=== PATIENT | male | born 1995 | race Caucasian/White ===

== ENCOUNTER 2019-07-26 08:59 | Emergency (ER) | payer MEDICARE, MEDICAID ==
[~2019-07-26] VITALS: Ht 188 cm; Wt 59.1 kg
[2019-07-26 09:08] VITALS: BP 103/66
[2019-07-26] MEDS ORDERED: GABA-1216 PO (09:11)
[2019-07-26 11:06] LABS: BASOPHILS % (AUTO) 0.6 % (0.0-2.0); EOSINOPHILS % (AUTO) 0.7 % (1.0-6.0); HEMATOCRIT 37.8 % (41-53); HEMOGLOBIN 12.8 g/dL (13.5-17.5); LYMPHOCYTES # (AUTO) 2.3 K/uL (1.0-4.8); LYMPHOCYTES % (AUTO) 31.5 % (22.0-44.0); MEAN CORPUSCULAR HEMOGLOBIN 31.1 pg (26.0-34.0); MEAN CORPUSCULAR HGB CONC 33.8 G/dL (31.0-37.0); MEAN CORPUSCULAR VOLUME 92 fL (80-100); MONOCYTES # (AUTO) 0.8 K/uL (0.1-1.0); MONOCYTES % (AUTO) 11.3 % (2.0-9.0); NEUTROPHILS % (AUTO) 55.9 % (40.0-70.0); PLATELET COUNT (AUTO) 272 K/uL (150-450); RED BLOOD CELL COUNT(AUTO) 4.11 MIL/uL (4.50-5.90); RED CELL DISTRIBUTION WIDTH 13.8 % (11.5-14.5)
[2019-07-26 11:18] LABS: ANION GAP 9 mmol/L (8-16); CALCIUM, TOTAL 9.1 mg/dL (8.8-10.5); CARBON DIOXIDE 29 mmol/L (22-29); CHLORIDE 100 mmol/L (98-107); CREATININE 0.84 mg/dL (0.60-1.30); GLOMERULAR FILTR. RATE CALC > 60 mL/min (>60); GLUCOSE,RANDOM 71 mg/dL (70-110); POTASSIUM 4.1 mmol/L (3.5-5.1); SODIUM SERUM 138 mmol/L (136-145); UREA NITROGEN, BLOOD 17 mg/dL (7-18)
[2019-07-26 11:22] LABS: ALANINE AMINOTRANSFERASE 31 U/L (12-78); ALBUMIN 4.2 g/dL (3.4-5.0); ALKALINE PHOSPHATASE 62 U/L (46-116); ASPARTATE AMINOTRANSFERASE 26 U/L (15-37); BILIRUBIN,TOTAL 0.6 mg/dL (0.1-1.0); TOTAL PROTEIN, SERUM 7.2 g/dL (6.4-8.2)
[2019-07-26] MEDS ORDERED: ACETAMINOPHEN 500 MG TABLET PO ONE (11:30)
== END 2019-07-26 12:27 | disposition home or self-care (01) ==
LOC: EMS 09:00
DX: R51 Headache (principal); F19.10 Other psychoactive substance abuse, uncomplicated; F17.210 Nicotine dependence, cigarettes, uncomplicated; F41.9 Anxiety disorder, unspecified; F32.9 Major depressive disorder, single episode, unspecified; F14.90 Cocaine use, unspecified, uncomplicated; F11.90 Opioid use, unspecified, uncomplicated; F12.90 Cannabis use, unspecified, uncomplicated
CPT/HCPCS: 36415; 80053; 85025; 99283; 99406; G0480

== ENCOUNTER 2019-08-05 05:03 | Inpatient (IN) | payer MEDICARE, MEDICAID ==
[~2019-08-05] VITALS: Ht 185.4 cm; Wt 63.5 kg
[~2019-08-05 05:03] MED LIST: GABA-1216 PO
[2019-08-05 06:46] LABS: BASOPHILS % (AUTO) 0.7 % (0.0-2.0); EOSINOPHILS % (AUTO) 0.7 % (1.0-6.0); HEMATOCRIT 39.4 % (41-53); LYMPHOCYTES # (AUTO) 2.6 K/uL (1.0-4.8); LYMPHOCYTES % (AUTO) 26.5 % (22.0-44.0); MEAN CORPUSCULAR HEMOGLOBIN 30.4 pg (26.0-34.0); MEAN CORPUSCULAR HGB CONC 33.1 G/dL (31.0-37.0); MEAN CORPUSCULAR VOLUME 92 fL (80-100); MONOCYTES # (AUTO) 0.8 K/uL (0.1-1.0); MONOCYTES % (AUTO) 8.5 % (2.0-9.0); NEUTROPHILS # (AUTO) 6.2 K/uL (1.8-7.7); NEUTROPHILS % (AUTO) 63.6 % (40.0-70.0); PLATELET COUNT (AUTO) 274 K/uL (150-450); RED CELL DISTRIBUTION WIDTH 13.7 % (11.5-14.5)
[2019-08-05 06:58] LABS: ANION GAP 7 mmol/L (8-16); CALCIUM, TOTAL 8.9 mg/dL (8.8-10.5); CARBON DIOXIDE 31 mmol/L (22-29); CHLORIDE 102 mmol/L (98-107); GLOMERULAR FILTR. RATE CALC > 60 mL/min (>60); GLUCOSE,RANDOM 72 mg/dL (70-110); POTASSIUM 3.7 mmol/L (3.5-5.1); SODIUM SERUM 140 mmol/L (136-145); UREA NITROGEN, BLOOD 13 mg/dL (7-18)
[2019-08-05 07:00] LABS: AMPHET/METH SCREEN,URINE POSITIVE (NEGATIVE); BARBITURATE SCREEN, URINE NEGATIVE (NEGATIVE); BENZODIAZEPINES SCREEN,URINE NEGATIVE (NEGATIVE); CANNABINOID SCREEN,URINE POSITIVE (NEGATIVE); COCAINE SCREEN,URINE NEGATIVE (NEGATIVE); METHADONE SCREEN, URINE NEGATIVE (NEGATIVE); OPIATE SCREEN,URINE NEGATIVE (NEGATIVE)
[2019-08-05 07:01] LABS: ALANINE AMINOTRANSFERASE 35 U/L (12-78); ALBUMIN 4.2 g/dL (3.4-5.0); ALKALINE PHOSPHATASE 67 U/L (46-116); ASPARTATE AMINOTRANSFERASE 29 U/L (15-37); BILIRUBIN,TOTAL 0.2 mg/dL (0.1-1.0); TOTAL PROTEIN, SERUM 7.6 g/dL (6.4-8.2)
[2019-08-05 07:16] LABS: PHENCYCLIDINE SCREEN,URINE NEGATIVE (NEGATIVE)
[2019-08-05] MEDS ORDERED: ZOLPIDEM TARTRATE 10 MG TABLET PO PRN (08:30)
[2019-08-05] MEDS ORDERED: HALOPERIDOL 5 MG TABLET PO PRN (08:30)
[2019-08-05 12:10] VITALS: BP 141/81
[2019-08-05] MEDS ORDERED: LOPERAMIDE HCL 2 MG CAPSULE PO PRN (12:45)
[2019-08-05] MEDS ORDERED: GuaiFENesin/D-METHORPHAN [SUGAR-FREE] 200-20MG/10 ML SYRUP UDCUP PO PRN (12:45)
[2019-08-05] MEDS ORDERED: MAG HYDROX/AL HYDROX/SIMETH ES 30 ML SUSPENSION UDCUP PO PRN (12:45)
[2019-08-05] MEDS ORDERED: MAGNESIUM HYDROXIDE SUSPENSION 30 ML UDCUP PO PRN (12:45)
[2019-08-05] MEDS ORDERED: ONDANSETRON HCL 4 MG TABLET PO PRN (12:45)
[2019-08-05] MEDS ORDERED: PETROLATUM,WHITE 28 GM JELLY TP PRN (12:45)
[2019-08-05] MEDS ORDERED: ACETAMINOPHEN 325 MG TABLET PO PRN (12:45)
[2019-08-05] MEDS ORDERED: ALBUTEROL SULFATE HFA 90 MCG/PUFF 8 GM INHALER IH PRN (12:45)
[2019-08-05] MEDS ORDERED: CloNIDine HCL 0.1 MG TABLET PO PRN (12:45)
[2019-08-05] MEDS ORDERED: DOCUSATE SODIUM 100 MG CAPSULE PO PRN (12:45)
[2019-08-05] MEDS: LORazepam 2 MG TABLET PO PRN (13:30)
[2019-08-05] MEDS: NICOTINE 14 MG/24 HOUR PATCH TD PRN (17:38)
[2019-08-05 17:58] VITALS: BP 101/68
[2019-08-06 08:40] LABS: CHOL/HDL RATIO 1.5 (4.2-7.3)
[2019-08-06] MEDS: QUEtiapine FUMARATE 25 MG TABLET PO SCH (09:00)
[2019-08-06 09:01] VITALS: BP 121/66
[2019-08-06] MEDS: LORazepam 2 MG TABLET PO PRN (13:02)
[2019-08-06 16:15] VITALS: BP 106/69
[2019-08-06] MEDS: IBUPROFEN 400 MG TABLET PO PRN (16:15)
[2019-08-06] MEDS: NICOTINE 14 MG/24 HOUR PATCH TD PRN (16:17)
[2019-08-07 08:33] VITALS: BP 104/55
[2019-08-07] MEDS: QUEtiapine FUMARATE 25 MG TABLET PO SCH (08:56)
[2019-08-07 16:15] VITALS: BP 107/66
[2019-08-08 06:46] VITALS: BP 114/68
[2019-08-08 08:09] VITALS: BP 112/64
[2019-08-08] MEDS: MULTIVITAMINS WITH MINERALS, THERAPEUTIC TABLET PO SCH (09:21)
[2019-08-08] MEDS: QUEtiapine FUMARATE 25 MG TABLET PO SCH (09:21)
[2019-08-08] MEDS: NICOTINE 14 MG/24 HOUR PATCH TD PRN (09:26)
[2019-08-08 16:23] VITALS: BP 119/68
[2019-08-09 01:41] VITALS: BP 104/62
[2019-08-09 08:19] VITALS: BP 119/60
[2019-08-09] MEDS: QUEtiapine FUMARATE 25 MG TABLET PO SCH (08:34)
[2019-08-09] MEDS: MULTIVITAMINS WITH MINERALS, THERAPEUTIC TABLET PO SCH (08:34)
[2019-08-09] MEDS: LORazepam 2 MG TABLET PO PRN (09:12)
[2019-08-09] MEDS: NICOTINE 14 MG/24 HOUR PATCH TD PRN (10:35)
[2019-08-09] MEDS: IBUPROFEN 400 MG TABLET PO PRN (16:21)
[2019-08-09 16:22] VITALS: BP_SYST 117; BP_DIAS 1; BP_DIAS 71
[2019-08-10 06:32] VITALS: BP 102/75
[2019-08-10] MEDS: LORazepam 2 MG TABLET PO PRN (08:02)
[2019-08-10] MEDS: QUEtiapine FUMARATE 25 MG TABLET PO SCH ×2 (08:02→16:21)
[2019-08-10] MEDS: MULTIVITAMINS WITH MINERALS, THERAPEUTIC TABLET PO SCH (08:02)
[2019-08-10] MEDS: NICOTINE 21 MG/24 HOUR PATCH TD SCH (09:27)
[2019-08-10 10:42] VITALS: BP 124/63
[2019-08-10 14:38] VITALS: BP 117/71
[2019-08-10] MEDS: IBUPROFEN 400 MG TABLET PO PRN (14:38)
[2019-08-10 16:46] VITALS: BP 113/63
[2019-08-11 06:12] VITALS: BP 112/63
[2019-08-11] MEDS: LORazepam 2 MG TABLET PO PRN ×2 (06:52→14:30)
[2019-08-11] MEDS: IBUPROFEN 400 MG TABLET PO PRN (07:03)
[2019-08-11] MEDS: NICOTINE 21 MG/24 HOUR PATCH TD SCH (08:24)
[2019-08-11] MEDS: MULTIVITAMINS WITH MINERALS, THERAPEUTIC TABLET PO SCH (08:25)
[2019-08-11] MEDS: QUEtiapine FUMARATE 25 MG TABLET PO SCH ×2 (08:25→16:32)
[2019-08-11 08:26] VITALS: BP 115/64
[2019-08-11 16:05] VITALS: BP 129/61
[2019-08-12 06:11] VITALS: BP 124/68
[2019-08-12] MEDS: QUEtiapine FUMARATE 25 MG TABLET PO SCH ×2 (08:04→16:11)
[2019-08-12] MEDS: MULTIVITAMINS WITH MINERALS, THERAPEUTIC TABLET PO SCH (08:04)
[2019-08-12] MEDS: NICOTINE 21 MG/24 HOUR PATCH TD SCH (08:04)
[2019-08-12] MEDS: LORazepam 2 MG TABLET PO PRN ×2 (08:05→14:49)
[2019-08-12 08:37] VITALS: BP_SYST 98; BP_DIAS 56; BP_DIAS 67
[2019-08-12 16:07] VITALS: BP 94/65
[2019-08-12] MEDS: IBUPROFEN 400 MG TABLET PO PRN (16:38)
[2019-08-13 00:06] VITALS: BP 100/62
[2019-08-13 07:12] VITALS: BP 102/68
[2019-08-13] MEDS: IBUPROFEN 400 MG TABLET PO PRN (07:15)
[2019-08-13] MEDS: MULTIVITAMINS WITH MINERALS, THERAPEUTIC TABLET PO SCH (08:10)
[2019-08-13] MEDS: QUEtiapine FUMARATE 25 MG TABLET PO SCH (08:10)
[2019-08-13] MEDS: LORazepam 2 MG TABLET PO PRN (08:10)
[2019-08-13] MEDS: NICOTINE 21 MG/24 HOUR PATCH TD SCH (08:11)
[2019-08-13 08:16] VITALS: BP 117/69
[2019-08-13 08:18] VITALS: BP 117/69
[2019-08-13] MEDS ORDERED: QUET25TA PO (09:59)
== END 2019-08-13 13:45 | disposition home or self-care (01) | DRG 885 ==
LOC: EMS 05:04 → B2X 10:54
PROVIDERS: ADMIT Psychiatry & Neurology Psychiatry; ATTEND Psychiatry & Neurology Child & Adolescent Psychiatry
DX: F25.1 Schizoaffective disorder, depressive type (principal); F15.10 Other stimulant abuse, uncomplicated; F12.10 Cannabis abuse, uncomplicated; I10 Essential (primary) hypertension; D64.9 Anemia, unspecified; R00.0 Tachycardia, unspecified; J44.9 Chronic obstructive pulmonary disease, unspecified; E03.9 Hypothyroidism, unspecified; F10.10 Alcohol abuse, uncomplicated; Z87.891 Personal history of nicotine dependence
CPT/HCPCS: 93005; G0480

== ENCOUNTER 2019-09-07 07:26 | Emergency (ER) | payer MEDICARE, MEDICAID ==
[~2019-09-07] VITALS: Ht 170.2 cm; Wt 72.7 kg
[~2019-09-07 07:26] MED LIST changes: -GABA-1216 PO; +QUET50TA PO
[2019-09-07] MEDS ORDERED: OLAN7.5T2 PO (07:47)
[2019-09-07 08:07] LABS: BASOPHILS % (AUTO) 0.6 % (0.0-2.0); HEMATOCRIT 34.4 % (41-53); HEMOGLOBIN 11.3 g/dL (13.5-17.5); LYMPHOCYTES # (AUTO) 1.6 K/uL (1.0-4.8); LYMPHOCYTES % (AUTO) 22.7 % (22.0-44.0); MEAN CORPUSCULAR HEMOGLOBIN 30.5 pg (26.0-34.0); MEAN CORPUSCULAR HGB CONC 32.7 G/dL (31.0-37.0); MEAN CORPUSCULAR VOLUME 93 fL (80-100); MONOCYTES # (AUTO) 0.9 K/uL (0.1-1.0); MONOCYTES % (AUTO) 13.1 % (2.0-9.0); NEUTROPHILS # (AUTO) 4.4 K/uL (1.8-7.7); NEUTROPHILS % (AUTO) 62.6 % (40.0-70.0); PLATELET COUNT (AUTO) 255 K/uL (150-450); RED BLOOD CELL COUNT(AUTO) 3.69 MIL/uL (4.50-5.90); RED CELL DISTRIBUTION WIDTH 14.1 % (11.5-14.5)
[2019-09-07 08:30] LABS: PROTHROMBIN TIME 10.6 SEC (9.4-11.6)
[2019-09-07 08:38] LABS: ANION GAP 8 mmol/L (8-16); CALCIUM, TOTAL 8.8 mg/dL (8.8-10.5); CARBON DIOXIDE 29 mmol/L (22-29); CHLORIDE 108 mmol/L (98-107); CREATININE 0.79 mg/dL (0.60-1.30); GLOMERULAR FILTR. RATE CALC > 60 mL/min (>60); GLUCOSE,RANDOM 98 mg/dL (70-110); POTASSIUM 3.6 mmol/L (3.5-5.1); SODIUM SERUM 145 mmol/L (136-145); UREA NITROGEN, BLOOD 17 mg/dL (7-18)
[2019-09-07 08:52] LABS: B-TYPE NATRIURETIC PEPTIDE 6 pg/mL (0-100)
[2019-09-07] MEDS ORDERED: LORazepam 1 MG TABLET PO ONE (09:00)
[2019-09-07 09:02] LABS: ALANINE AMINOTRANSFERASE 71 U/L (12-78); ALBUMIN 3.7 g/dL (3.4-5.0); ALKALINE PHOSPHATASE 67 U/L (46-116); ASPARTATE AMINOTRANSFERASE 28 U/L (15-37); BILIRUBIN,TOTAL 0.3 mg/dL (0.1-1.0); CREATINE KINASE, TOTAL ONLY 310 U/L (39-308); TOTAL PROTEIN, SERUM 7.4 g/dL (6.4-8.2)
[2019-09-07 09:11] LABS: AMPHET/METH SCREEN,URINE POSITIVE (NEGATIVE); BARBITURATE SCREEN, URINE NEGATIVE (NEGATIVE); BENZODIAZEPINES SCREEN,URINE NEGATIVE (NEGATIVE); CANNABINOID SCREEN,URINE POSITIVE (NEGATIVE); COCAINE SCREEN,URINE NEGATIVE (NEGATIVE); METHADONE SCREEN, URINE NEGATIVE (NEGATIVE); OPIATE SCREEN,URINE NEGATIVE (NEGATIVE)
[2019-09-07 09:36] LABS: APPEARANCE,URINE CLEAR (CLEAR); BILIRUBIN,URINE NEGATIVE (NEGATIVE); GLUCOSE, URINE (UA) NEGATIVE (NEGATIVE); KETONES,URINE NEGATIVE (NEGATIVE); LEUKOCYTE ESTERASE ,URINE NEGATIVE (NEGATIVE); NITRATE,URINE NEGATIVE (NEGATIVE); OCCULT BLOOD,URINE NEGATIVE (NEGATIVE); PH,URINE 6.5 (5.0-8.0); PROTEIN,URINE NEGATIVE (NEGATIVE)
[2019-09-07 09:49] LABS: PHENCYCLIDINE SCREEN,URINE NEGATIVE (NEGATIVE)
[2019-09-07 09:59] VITALS: BP 127/83
== END 2019-09-07 10:22 | disposition home or self-care (01) ==
LOC: EMS 07:27
DX: F32.9 Major depressive disorder, single episode, unspecified (principal); R07.9 Chest pain, unspecified; F19.10 Other psychoactive substance abuse, uncomplicated; F41.9 Anxiety disorder, unspecified; F11.90 Opioid use, unspecified, uncomplicated; F12.90 Cannabis use, unspecified, uncomplicated; F17.210 Nicotine dependence, cigarettes, uncomplicated
CPT/HCPCS: 36415; 71045; 80053; 80307; 81003; 82550; 83880; 84484; 85025; 85610; 85730; 93005; 99285; G0480

== ENCOUNTER 2019-09-11 20:38 | Inpatient (IN) | payer MEDICARE, MEDICAID ==
[~2019-09-11] VITALS: Ht 188 cm; Wt 67.2 kg
[~2019-09-11 20:38] MED LIST changes: +OLAN7.5T2 PO
[2019-09-11] MEDS ORDERED: PROMETHAZINE HCL 25 MG TABLET PO PRN (20:45)
[2019-09-11] MEDS ORDERED: ZOLPIDEM TARTRATE 10 MG TABLET PO PRN (20:45)
[2019-09-11] MEDS ORDERED: MAG HYDROX/AL HYDROX/SIMETH ES 30 ML SUSPENSION UDCUP PO PRN (20:45)
[2019-09-11] MEDS ORDERED: PALIPERIDONE 1.5 MG ER TABLET PO PRN (20:45)
[2019-09-11] MEDS ORDERED: LOPERAMIDE HCL 2 MG CAPSULE PO PRN (20:45)
[2019-09-11] MEDS ORDERED: TUBERCULIN, PURIFIED PROTEIN DERIVATIVE 5 TU/0.1 ML SYRINGE ID ONE (20:45)
[2019-09-11] MEDS ORDERED: HydrOXYzine PAMOATE 50 MG CAPSULE PO PRN (20:45)
[2019-09-11] MEDS ORDERED: GuaiFENesin/D-METHORPHAN [SUGAR-FREE] 200-20MG/10 ML SYRUP UDCUP PO PRN (20:45)
[2019-09-11] MEDS ORDERED: MAGNESIUM HYDROXIDE SUSPENSION 30 ML UDCUP PO PRN (20:45)
[2019-09-11] MEDS ORDERED: PALIPERIDONE 3 MG ER TABLET PO SCH (21:00)
[2019-09-12 00:29] VITALS: BP 105/69
[2019-09-12] MEDS: LORazepam 2 MG TABLET PO PRN (00:49)
[2019-09-12 08:39] LABS: BASOPHILS % (AUTO) 0.8 % (0.0-2.0); EOSINOPHILS % (AUTO) 2.3 % (1.0-6.0); HEMATOCRIT 36.4 % (41-53); HEMOGLOBIN 12.2 g/dL (13.5-17.5); LYMPHOCYTES # (AUTO) 1.8 K/uL (1.0-4.8); LYMPHOCYTES % (AUTO) 29.6 % (22.0-44.0); MEAN CORPUSCULAR HGB CONC 33.4 G/dL (31.0-37.0); MEAN CORPUSCULAR VOLUME 93 fL (80-100); MONOCYTES # (AUTO) 0.7 K/uL (0.1-1.0); MONOCYTES % (AUTO) 11.8 % (2.0-9.0); NEUTROPHILS # (AUTO) 3.3 K/uL (1.8-7.7); NEUTROPHILS % (AUTO) 55.5 % (40.0-70.0); PLATELET COUNT (AUTO) 249 K/uL (150-450); RED BLOOD CELL COUNT(AUTO) 3.93 MIL/uL (4.50-5.90); RED CELL DISTRIBUTION WIDTH 14.7 % (11.5-14.5)
[2019-09-12 08:46] VITALS: BP 140/68
[2019-09-12] MEDS: THIAMINE 100 MG TABLET PO SCH ×2 (08:46→16:35)
[2019-09-12] MEDS: NALTREXONE HCL 50 MG TABLET PO SCH (08:46)
[2019-09-12] MEDS: FOLIC ACID 1 MG TABLET PO SCH (08:46)
[2019-09-12] MEDS: MULTIVITAMINS WITH MINERALS, THERAPEUTIC TABLET PO SCH (08:46)
[2019-09-12] MEDS ORDERED: PALIPERIDONE PALMITATE 234 MG/1.5 ML SYRINGE IM ONE (09:00)
[2019-09-12 09:12] LABS: ALANINE AMINOTRANSFERASE 44 U/L (12-78); ALBUMIN 3.4 g/dL (3.4-5.0); ALKALINE PHOSPHATASE 73 U/L (46-116); ANION GAP 6 mmol/L (8-16); ASPARTATE AMINOTRANSFERASE 36 U/L (15-37); BILIRUBIN,TOTAL 0.4 mg/dL (0.1-1.0); CALCIUM, TOTAL 8.7 mg/dL (8.8-10.5); CARBON DIOXIDE 28 mmol/L (22-29); CHLORIDE 104 mmol/L (98-107); CHOL/HDL RATIO 1.8 (4.2-7.3); CHOLESTEROL 137 mg/dL (131-200); CREATININE 0.83 mg/dL (0.60-1.30); GLOMERULAR FILTR. RATE CALC > 60 mL/min (>60); GLUCOSE,RANDOM 74 mg/dL (70-110); HDL CHOLESTEROL 78 mg/dL (40-60); LDL CHOL (CALC.) 55 mg/dL (0-130); POTASSIUM 4.1 mmol/L (3.5-5.1); SODIUM SERUM 138 mmol/L (136-145); THYROID STIMULATING HORMONE 1.56 uIU/mL (0.36-3.74); TRIGLYCERIDES 19 mg/dL (15-150); UREA NITROGEN, BLOOD 19 mg/dL (7-18)
[2019-09-12 09:36] LABS: HEMOGLOBIN A1C 4.9 % (3.8-5.6)
[2019-09-12 16:15] VITALS: BP 113/74
[2019-09-12] MEDS: ACETAMINOPHEN 325 MG TABLET PO PRN (17:00)
[2019-09-13 01:22] VITALS: BP 105/63
[2019-09-13 08:33] VITALS: BP 130/60
[2019-09-13] MEDS: NALTREXONE HCL 50 MG TABLET PO SCH (09:08)
[2019-09-13] MEDS: THIAMINE 100 MG TABLET PO SCH ×2 (09:08→16:57)
[2019-09-13] MEDS: FOLIC ACID 1 MG TABLET PO SCH (09:08)
[2019-09-13] MEDS: MULTIVITAMINS WITH MINERALS, THERAPEUTIC TABLET PO SCH (09:08)
[2019-09-13] MEDS: LORazepam 2 MG TABLET PO PRN (09:08)
[2019-09-13 16:45] VITALS: BP 114/64
[2019-09-13] MEDS: DIVALPROEX SODIUM 500 MG ER TABLET PO SCH (20:34)
[2019-09-14 01:24] VITALS: BP 104/68
[2019-09-14 08:28] VITALS: BP 115/61
[2019-09-14] MEDS: MULTIVITAMINS WITH MINERALS, THERAPEUTIC TABLET PO SCH (09:12)
[2019-09-14] MEDS: NALTREXONE HCL 50 MG TABLET PO SCH (09:12)
[2019-09-14] MEDS: THIAMINE 100 MG TABLET PO SCH ×2 (09:12→16:31)
[2019-09-14] MEDS: FOLIC ACID 1 MG TABLET PO SCH (09:12)
[2019-09-14 11:18] VITALS: BP 120/61
[2019-09-14] MEDS: ACETAMINOPHEN 325 MG TABLET PO PRN ×2 (11:18→17:44)
[2019-09-14 16:29] VITALS: BP 106/64
[2019-09-14] MEDS: LORazepam 2 MG TABLET PO PRN (17:45)
[2019-09-14] MEDS: DIVALPROEX SODIUM 500 MG ER TABLET PO SCH (20:41)
[2019-09-15 02:52] VITALS: BP 115/60
[2019-09-15] MEDS: FOLIC ACID 1 MG TABLET PO SCH (09:01)
[2019-09-15] MEDS: NALTREXONE HCL 50 MG TABLET PO SCH (09:01)
[2019-09-15] MEDS: MULTIVITAMINS WITH MINERALS, THERAPEUTIC TABLET PO SCH (09:01)
[2019-09-15] MEDS: THIAMINE 100 MG TABLET PO SCH ×2 (09:02→16:09)
[2019-09-15 09:04] VITALS: BP 103/60
[2019-09-15] MEDS: LORazepam 2 MG TABLET PO PRN (09:55)
[2019-09-15 09:56] LABS: ALANINE AMINOTRANSFERASE 33 U/L (12-78); ALBUMIN 3.6 g/dL (3.4-5.0); ALKALINE PHOSPHATASE 70 U/L (46-116); ANION GAP 5 mmol/L (8-16); ASPARTATE AMINOTRANSFERASE 19 U/L (15-37); BILIRUBIN,TOTAL 0.1 mg/dL (0.1-1.0); CALCIUM, TOTAL 9.2 mg/dL (8.8-10.5); CARBON DIOXIDE 33 mmol/L (22-29); CHLORIDE 105 mmol/L (98-107); CREATINE KINASE, TOTAL ONLY 154 U/L (39-308); CREATININE 0.93 mg/dL (0.60-1.30); GLOMERULAR FILTR. RATE CALC > 60 mL/min (>60); GLUCOSE,RANDOM 85 mg/dL (70-110); POTASSIUM 4.2 mmol/L (3.5-5.1); SODIUM SERUM 143 mmol/L (136-145); TOTAL PROTEIN, SERUM 7.5 g/dL (6.4-8.2); UREA NITROGEN, BLOOD 21 mg/dL (7-18); VALPROIC ACID 67 mcg/mL (50-100)
[2019-09-15] MEDS: ACETAMINOPHEN 325 MG TABLET PO PRN (09:56)
[2019-09-15] MEDS ORDERED: DIVA-80 PO (14:43)
[2019-09-15] MEDS ORDERED: PALI117D IM (14:43)
[2019-09-15] MEDS ORDERED: NALT50TA PO (14:43)
[2019-09-15 16:21] VITALS: BP 126/60
[2019-09-16] MEDS ORDERED: MAGNESIUM OXIDE 400 MG TABLET PO SCH (09:00)
[2019-09-16] MEDS ORDERED: PALIPERIDONE PALMITATE 156 MG/ML SYRINGE IM ONE (09:00)
== END 2019-09-15 20:56 | disposition home or self-care (01) | DRG 885 ==
LOC: B2X 22:14
PROVIDERS: ADMIT Psychiatry & Neurology Psychiatry; ATTEND Psychiatry & Neurology Psychiatry
DX: F25.9 Schizoaffective disorder, unspecified (principal); R45.851 Suicidal ideations; D64.9 Anemia, unspecified; R79.89 Other specified abnormal findings of blood chemistry; F19.10 Other psychoactive substance abuse, uncomplicated; F15.90 Other stimulant use, unspecified, uncomplicated; Z91.19 Patient's noncompliance with other medical treatment and regimen; F32.9 Major depressive disorder, single episode, unspecified; F12.90 Cannabis use, unspecified, uncomplicated; Z79.899 Other long term (current) drug therapy; Z91.5 Personal history of self-harm
CPT/HCPCS: 80074; 83036; 83735; 84439; 84443; 86592; 87081

== ENCOUNTER 2020-01-24 03:07 | Inpatient (IN) | payer MEDICARE, MEDICAID ==
[~2020-01-24] VITALS: Ht 185.4 cm; Wt 80.3 kg
[~2020-01-24 03:07] MED LIST changes: +DIVA-80 PO; +NALT50TA PO; -OLAN7.5T2 PO; +PALI117D IM; -QUET50TA PO
[2020-01-24] MEDS ORDERED: ZOLPIDEM TARTRATE 10 MG TABLET PO PRN (04:45)
[2020-01-24 05:01] VITALS: BP 102/65
[2020-01-24 05:21] VITALS: BP 102/65
[2020-01-24 06:04] VITALS: BP 105/64
[2020-01-24 08:14] VITALS: BP 100/60
[2020-01-24] MEDS: RisperiDONE 2 MG TABLET PO SCH ×2 (09:00→21:00)
[2020-01-24] MEDS ORDERED: GuaiFENesin/D-METHORPHAN [SUGAR-FREE] 200-20MG/10 ML SYRUP UDCUP PO PRN (15:15)
[2020-01-24] MEDS ORDERED: DOCUSATE SODIUM 100 MG CAPSULE PO PRN (15:15)
[2020-01-24] MEDS ORDERED: ACETAMINOPHEN 325 MG TABLET PO PRN (15:15)
[2020-01-24] MEDS ORDERED: MAG HYDROX/AL HYDROX/SIMETH ES 30 ML SUSPENSION UDCUP PO PRN (15:15)
[2020-01-24] MEDS ORDERED: LOPERAMIDE HCL 2 MG CAPSULE PO PRN (15:15)
[2020-01-24] MEDS ORDERED: ONDANSETRON HCL 4 MG TABLET PO PRN (15:15)
[2020-01-24] MEDS ORDERED: MAGNESIUM HYDROXIDE SUSPENSION 30 ML UDCUP PO PRN (15:15)
[2020-01-24] MEDS ORDERED: PETROLATUM,WHITE 28 GM JELLY TP PRN (15:15)
[2020-01-24] MEDS ORDERED: ALBUTEROL SULFATE HFA 90 MCG/PUFF 8 GM INHALER IH PRN (15:15)
[2020-01-24] MEDS ORDERED: CloNIDine HCL 0.1 MG TABLET PO PRN (15:15)
[2020-01-24] MEDS: DIVALPROEX SODIUM 500 MG ER TABLET PO SCH (21:00)
[2020-01-25 08:48] VITALS: BP 103/48
[2020-01-25] MEDS: RisperiDONE 2 MG TABLET PO SCH ×3 (09:00→20:31)
[2020-01-25 16:08] VITALS: BP 95/60
[2020-01-25] MEDS: DIVALPROEX SODIUM 500 MG ER TABLET PO SCH (20:31)
[2020-01-26 08:20] VITALS: BP 108/83
[2020-01-26] MEDS: IBUPROFEN 400 MG TABLET PO PRN (08:49)
[2020-01-26] MEDS: RisperiDONE 2 MG TABLET PO SCH ×2 (08:49→21:00)
[2020-01-26] MEDS: CEPHALEXIN MONOHYDRATE 500 MG CAPSULE PO SCH ×2 (12:53→18:00)
[2020-01-26] MEDS: LORazepam 2 MG TABLET PO PRN (12:53)
[2020-01-26 16:21] VITALS: BP 113/67
[2020-01-26] MEDS: DIVALPROEX SODIUM 500 MG ER TABLET PO SCH (21:00)
[2020-01-27 06:03] VITALS: BP 110/70
[2020-01-27 08:15] LABS: APPEARANCE,URINE CLEAR (CLEAR); BILIRUBIN,URINE NEGATIVE (NEGATIVE); GLUCOSE, URINE (UA) NEGATIVE (NEGATIVE); KETONES,URINE NEGATIVE (NEGATIVE); LEUKOCYTE ESTERASE ,URINE NEGATIVE (NEGATIVE); NITRATE,URINE NEGATIVE (NEGATIVE); OCCULT BLOOD,URINE NEGATIVE (NEGATIVE); PH,URINE 6.5 (5.0-8.0); PROTEIN,URINE NEGATIVE (NEGATIVE); UROBILINOGEN,URINE 0.2 mg/dL (<=1.0)
[2020-01-27 08:16] LABS: BACTERIA,URINE None Seen /HPF (None Seen); RBC,URINE None Seen /HPF (0-2); WBC,URINE None Seen /HPF (0-5)
[2020-01-27 08:35] VITALS: BP 130/52
[2020-01-27] MEDS: RisperiDONE 2 MG TABLET PO SCH ×2 (10:04→20:36)
[2020-01-27] MEDS: CEPHALEXIN MONOHYDRATE 500 MG CAPSULE PO SCH ×3 (10:04→17:03)
[2020-01-27] MEDS: LORazepam 2 MG TABLET PO PRN (13:45)
[2020-01-27 16:05] VITALS: BP 130/50
[2020-01-27] MEDS: DIVALPROEX SODIUM 500 MG ER TABLET PO SCH (20:36)
[2020-01-28 08:07] VITALS: BP 124/83
[2020-01-28] MEDS: CEPHALEXIN MONOHYDRATE 500 MG CAPSULE PO SCH ×3 (08:26→16:38)
[2020-01-28] MEDS: RisperiDONE 2 MG TABLET PO SCH ×2 (08:26→20:28)
[2020-01-28] MEDS: IBUPROFEN 400 MG TABLET PO PRN (09:26)
[2020-01-28] MEDS: LORazepam 2 MG TABLET PO PRN (15:37)
[2020-01-28 16:02] VITALS: BP 125/63
[2020-01-28] MEDS: DIVALPROEX SODIUM 500 MG ER TABLET PO SCH (20:28)
[2020-01-29 00:51] VITALS: BP 109/72
[2020-01-29 08:21] VITALS: BP 106/54
[2020-01-29] MEDS: CEPHALEXIN MONOHYDRATE 500 MG CAPSULE PO SCH ×3 (08:25→16:49)
[2020-01-29] MEDS: LORazepam 2 MG TABLET PO PRN ×3 (08:25→17:28)
[2020-01-29] MEDS: RisperiDONE 2 MG TABLET PO SCH ×2 (08:25→21:49)
[2020-01-29] MEDS ORDERED: PALIPERIDONE PALMITATE 234 MG/1.5 ML SYRINGE IM ONE (11:00)
[2020-01-29 16:20] VITALS: BP 112/60
[2020-01-29] MEDS: QUEtiapine FUMARATE 100 MG TABLET PO PRN (16:47)
[2020-01-29 19:02] LABS: COVID AG,FIA SOURCE NASOPHARYNGEAL
[2020-01-29] MEDS: DIVALPROEX SODIUM 500 MG ER TABLET PO SCH (21:49)
[2020-01-30 00:23] VITALS: BP 114/60
[2020-01-30 08:05] VITALS: BP 109/66
[2020-01-30] MEDS: LORazepam 2 MG TABLET PO PRN (09:20)
[2020-01-30] MEDS: RisperiDONE 2 MG TABLET PO SCH ×2 (09:21→20:29)
[2020-01-30] MEDS: CEPHALEXIN MONOHYDRATE 500 MG CAPSULE PO SCH ×3 (09:21→16:32)
[2020-01-30 14:33] VITALS: BP 109/60
[2020-01-30 16:00] VITALS: BP 100/72
[2020-01-30] MEDS: NICOTINE 14 MG/24 HOUR PATCH TD PRN (16:40)
[2020-01-30] MEDS: DIVALPROEX SODIUM 500 MG ER TABLET PO SCH (20:29)
[2020-01-31 03:07] VITALS: BP 122/61
[2020-01-31 08:14] VITALS: BP 121/68
[2020-01-31] MEDS: CEPHALEXIN MONOHYDRATE 500 MG CAPSULE PO SCH (09:22)
[2020-01-31] MEDS: RisperiDONE 2 MG TABLET PO SCH ×2 (09:22→21:00)
[2020-01-31] MEDS: LORazepam 2 MG TABLET PO PRN ×2 (09:22→15:27)
[2020-01-31] MEDS: NICOTINE 14 MG/24 HOUR PATCH TD PRN (09:35)
[2020-01-31] MEDS: IBUPROFEN 400 MG TABLET PO PRN (12:06)
[2020-01-31 16:32] VITALS: BP 109/62
[2020-01-31] MEDS: DIVALPROEX SODIUM 500 MG ER TABLET PO SCH (21:00)
[2020-02-01 05:36] VITALS: BP 136/92
[2020-02-01] MEDS: LORazepam 2 MG TABLET PO PRN ×3 (05:59→16:27)
[2020-02-01] MEDS: QUEtiapine FUMARATE 100 MG TABLET PO PRN ×3 (06:10→16:27)
[2020-02-01 08:06] VITALS: BP 109/77
[2020-02-01] MEDS: RisperiDONE 2 MG TABLET PO SCH ×2 (09:13→20:29)
[2020-02-01] MEDS: NICOTINE 14 MG/24 HOUR PATCH TD PRN (10:38)
[2020-02-01 16:13] VITALS: BP 108/68
[2020-02-01] MEDS: DIVALPROEX SODIUM 500 MG ER TABLET PO SCH (20:29)
[2020-02-02 04:06] VITALS: BP 114/74
[2020-02-02] MEDS: LORazepam 2 MG TABLET PO PRN (06:39)
[2020-02-02 07:43] LABS: BASOPHILS % (AUTO) 0.6 % (0.0-2.0); EOSINOPHILS % (AUTO) 1.7 % (1.0-6.0); HEMATOCRIT 40.4 % (41-53); HEMOGLOBIN 13.7 g/dL (13.5-17.5); LYMPHOCYTES # (AUTO) 2.9 K/uL (1.0-4.8); LYMPHOCYTES % (AUTO) 47.2 % (22.0-44.0); MEAN CORPUSCULAR HEMOGLOBIN 30.2 pg (26.0-34.0); MEAN CORPUSCULAR VOLUME 89 fL (80-100); MONOCYTES # (AUTO) 0.6 K/uL (0.1-1.0); MONOCYTES % (AUTO) 10.3 % (2.0-9.0); NEUTROPHILS # (AUTO) 2.5 K/uL (1.8-7.7); NEUTROPHILS % (AUTO) 40.2 % (40.0-70.0); PLATELET COUNT (AUTO) 246 K/uL (150-450); RED BLOOD CELL COUNT(AUTO) 4.55 MIL/uL (4.50-5.90); RED CELL DISTRIBUTION WIDTH 14.6 % (11.5-14.5)
[2020-02-02 08:11] VITALS: BP 129/80
[2020-02-02 08:13] LABS: ALANINE AMINOTRANSFERASE 23 U/L (12-78); ALBUMIN 3.5 g/dL (3.4-5.0); ALKALINE PHOSPHATASE 63 U/L (46-116); ANION GAP 6 mmol/L (8-16); ASPARTATE AMINOTRANSFERASE 17 U/L (15-37); BILIRUBIN,TOTAL 0.2 mg/dL (0.1-1.0); CARBON DIOXIDE 30 mmol/L (22-29); CHLORIDE 105 mmol/L (98-107); CHOL/HDL RATIO 2.4 (4.2-7.3); CHOLESTEROL 163 mg/dL (131-200); CREATININE 0.77 mg/dL (0.60-1.30); FREE T4 (FREE THYROXINE) 0.84 ng/dL (0.76-1.46); GLOMERULAR FILTR. RATE CALC > 60 mL/min (>60); GLUCOSE,RANDOM 86 mg/dL (70-110); HDL CHOLESTEROL 67 mg/dL (40-60); LDL CHOL (CALC.) 91 mg/dL (0-130); POTASSIUM 4.3 mmol/L (3.5-5.1); SODIUM SERUM 141 mmol/L (136-145); THYROID STIMULATING HORMONE 3.02 uIU/mL (0.36-3.74); TOTAL PROTEIN, SERUM 7.2 g/dL (6.4-8.2); TRIGLYCERIDES 27 mg/dL (15-150); UREA NITROGEN, BLOOD 12 mg/dL (7-18); VALPROIC ACID 63 mcg/mL (50-100)
[2020-02-02 08:17] LABS: HEMOGLOBIN A1C 5.1 % (3.8-5.6)
[2020-02-02] MEDS: RisperiDONE 2 MG TABLET PO SCH (08:34)
[2020-02-02] MEDS ORDERED: PALIPERIDONE PALMITATE 156 MG/ML SYRINGE IM ONE (09:00)
[2020-02-02] MEDS ORDERED: DIVA-80 PO (09:01)
[2020-02-02] MEDS ORDERED: PALI234D IM (09:01)
[2020-02-02] MEDS ORDERED: RISP2TAB76 PO (09:01)
== END 2020-02-02 12:40 | disposition home or self-care (01) | DRG 885 ==
LOC: B2X 04:30
DX: F31.4 Bipolar disorder, current episode depressed, severe, without psychotic features (principal); R45.851 Suicidal ideations; F25.9 Schizoaffective disorder, unspecified; D64.9 Anemia, unspecified; F15.10 Other stimulant abuse, uncomplicated; F41.9 Anxiety disorder, unspecified; R10.13 Epigastric pain; F99 Mental disorder, not otherwise specified; Z20.828 Contact with and (suspected) exposure to other viral communicable diseases; Z91.14 Patient's other noncompliance with medication regimen; Z91.5 Personal history of self-harm; Z79.899 Other long term (current) drug therapy
CPT/HCPCS: 83036; 84439; 84443; 87426

== ENCOUNTER 2020-11-23 02:41 | Inpatient (IN) | payer MEDICARE, MEDICAID ==
[~2020-11-23] VITALS: Ht 167.6 cm; Wt 69.5 kg
[~2020-11-23 02:41] MED LIST changes: -NALT50TA PO; -PALI117D IM; +PALI234D IM; +RISP2TAB76 PO
[2020-11-23 03:03] LABS: BASOPHILS % (AUTO) 0.2 % (0.0-2.0); EOSINOPHILS % (AUTO) 0.9 % (1.0-6.0); HEMATOCRIT 37.4 % (41-53); HEMOGLOBIN 12.3 g/dL (13.5-17.5); LYMPHOCYTES # (AUTO) 2.1 K/uL (1.0-4.8); LYMPHOCYTES % (AUTO) 17.1 % (22.0-44.0); MEAN CORPUSCULAR HEMOGLOBIN 29.2 pg (26.0-34.0); MEAN CORPUSCULAR HGB CONC 32.9 G/dL (31.0-37.0); MEAN CORPUSCULAR VOLUME 89 fL (80-100); MONOCYTES # (AUTO) 0.9 K/uL (0.1-1.0); MONOCYTES % (AUTO) 6.9 % (2.0-9.0); NEUTROPHILS # (AUTO) 9.3 K/uL (1.8-7.7); NEUTROPHILS % (AUTO) 74.9 % (40.0-70.0); PLATELET COUNT (AUTO) 265 K/uL (150-450); RED BLOOD CELL COUNT(AUTO) 4.23 MIL/uL (4.50-5.90); RED CELL DISTRIBUTION WIDTH 14.1 % (11.5-14.5)
[2020-11-23 03:10] LABS: ANION GAP 6 mmol/L (8-16); CALCIUM, TOTAL 8.8 mg/dL (8.8-10.5); CARBON DIOXIDE 30 mmol/L (22-29); CHLORIDE 103 mmol/L (98-107); CREATININE 0.82 mg/dL (0.60-1.30); GLOMERULAR FILTR. RATE CALC > 60 mL/min (>60); GLUCOSE,RANDOM 92 mg/dL (70-110); POTASSIUM 4.2 mmol/L (3.5-5.1); SODIUM SERUM 139 mmol/L (136-145); UREA NITROGEN, BLOOD 14 mg/dL (7-18)
[2020-11-23 03:18] LABS: ALANINE AMINOTRANSFERASE 34 U/L (12-78); ALBUMIN 3.9 g/dL (3.4-5.0); ALKALINE PHOSPHATASE 84 U/L (46-116); ASPARTATE AMINOTRANSFERASE 20 U/L (15-37); BILIRUBIN,TOTAL 0.4 mg/dL (0.1-1.0); VALPROIC ACID < 3 mcg/mL (50-100)
[2020-11-23 03:49] LABS: COVID AG,FIA SOURCE NASOPHARYNGEAL
[2020-11-23] MEDS ORDERED: ZOLPIDEM TARTRATE 10 MG TABLET PO PRN (04:45)
[2020-11-23] MEDS ORDERED: ONDANSETRON HCL 4 MG TABLET PO PRN (08:15)
[2020-11-23] MEDS ORDERED: PETROLATUM,WHITE 28 GM JELLY TP PRN (08:15)
[2020-11-23] MEDS ORDERED: ACETAMINOPHEN 325 MG TABLET PO PRN (08:15)
[2020-11-23] MEDS ORDERED: CloNIDine HCL 0.1 MG TABLET PO PRN (08:15)
[2020-11-23] MEDS ORDERED: ALBUTEROL SULFATE HFA 90 MCG/PUFF 8 GM INHALER IH PRN (08:15)
[2020-11-23] MEDS ORDERED: BACITRACIN 28 GM OINTMENT TP PRN (08:15)
[2020-11-23] MEDS ORDERED: MAG HYDROX/AL HYDROX/SIMETH ES 30 ML SUSPENSION UDCUP PO PRN (08:15)
[2020-11-23] MEDS ORDERED: MAGNESIUM HYDROXIDE SUSPENSION 30 ML UDCUP PO PRN (08:15)
[2020-11-23] MEDS ORDERED: OMEPRAZOLE 20 MG CAPSULE PO PRN (08:15)
[2020-11-23] MEDS ORDERED: DOCUSATE SODIUM 100 MG CAPSULE PO PRN (08:15)
[2020-11-23] MEDS ORDERED: LOPERAMIDE HCL 2 MG CAPSULE PO PRN (08:15)
[2020-11-23] MEDS ORDERED: BENZOCAINE/MENTHOL LOZENGE PO PRN (08:15)
[2020-11-23 08:45] VITALS: BP 116/77
[2020-11-23 09:25] VITALS: BP 116/77
[2020-11-23] MEDS: RisperiDONE 2 MG TABLET PO SCH ×2 (20:26→22:48)
[2020-11-24 06:59] LABS: BASOPHILS % (AUTO) 0.5 % (0.0-2.0); EOSINOPHILS % (AUTO) 1.9 % (1.0-6.0); HEMATOCRIT 38.1 % (41-53); HEMOGLOBIN 12.6 g/dL (13.5-17.5); LYMPHOCYTES # (AUTO) 2.3 K/uL (1.0-4.8); LYMPHOCYTES % (AUTO) 35.3 % (22.0-44.0); MEAN CORPUSCULAR HEMOGLOBIN 29.5 pg (26.0-34.0); MEAN CORPUSCULAR HGB CONC 33.2 G/dL (31.0-37.0); MEAN CORPUSCULAR VOLUME 89 fL (80-100); MONOCYTES # (AUTO) 0.8 K/uL (0.1-1.0); MONOCYTES % (AUTO) 11.8 % (2.0-9.0); NEUTROPHILS # (AUTO) 3.2 K/uL (1.8-7.7); NEUTROPHILS % (AUTO) 50.5 % (40.0-70.0); PLATELET COUNT (AUTO) 244 K/uL (150-450); RED BLOOD CELL COUNT(AUTO) 4.28 MIL/uL (4.50-5.90); RED CELL DISTRIBUTION WIDTH 14.6 % (11.5-14.5)
[2020-11-24 07:14] LABS: ALANINE AMINOTRANSFERASE 23 U/L (12-78); ALKALINE PHOSPHATASE 66 U/L (46-116); ANION GAP 5 mmol/L (8-16); ASPARTATE AMINOTRANSFERASE 15 U/L (15-37); BILIRUBIN,TOTAL 0.1 mg/dL (0.1-1.0); CALCIUM, TOTAL 8.2 mg/dL (8.8-10.5); CARBON DIOXIDE 27 mmol/L (22-29); CHLORIDE 107 mmol/L (98-107); CHOL/HDL RATIO 1.7 (4.2-7.3); CHOLESTEROL 104 mg/dL (131-200); GLOMERULAR FILTR. RATE CALC > 60 mL/min (>60); GLUCOSE,RANDOM 86 mg/dL (70-110); HDL CHOLESTEROL 61 mg/dL (40-60); LDL CHOL (CALC.) 39 mg/dL (0-130); PHOSPHORUS 3.2 mg/dL (2.5-4.9); POTASSIUM 4.2 mmol/L (3.5-5.1); SODIUM SERUM 139 mmol/L (136-145); TOTAL PROTEIN, SERUM 6.7 g/dL (6.4-8.2); TRIGLYCERIDES 20 mg/dL (15-150); UREA NITROGEN, BLOOD 12 mg/dL (7-18)
[2020-11-24 09:48] VITALS: BP 99/61
[2020-11-24] MEDS: RisperiDONE 2 MG TABLET PO SCH ×2 (10:13→20:55)
[2020-11-24] MEDS: DIVALPROEX SODIUM 500 MG ER TABLET PO SCH ×2 (10:13→17:00)
[2020-11-24 17:48] VITALS: BP 99/69
[2020-11-25] MEDS: DIVALPROEX SODIUM 500 MG ER TABLET PO SCH ×2 (09:17→16:40)
[2020-11-25] MEDS: RisperiDONE 2 MG TABLET PO SCH ×2 (09:17→20:38)
[2020-11-25 16:00] VITALS: BP 110/69
[2020-11-26] MEDS: RisperiDONE 2 MG TABLET PO SCH ×2 (08:09→20:55)
[2020-11-26] MEDS: DIVALPROEX SODIUM 500 MG ER TABLET PO SCH ×2 (08:09→17:13)
[2020-11-26 08:45] VITALS: BP 100/60
[2020-11-26 16:07] VITALS: BP 122/68
[2020-11-26] MEDS: HALOPERIDOL 5 MG TABLET PO PRN (17:13)
[2020-11-27 08:15] VITALS: BP 155/95
[2020-11-27] MEDS: DIVALPROEX SODIUM 500 MG ER TABLET PO SCH ×2 (08:21→16:29)
[2020-11-27] MEDS: RisperiDONE 2 MG TABLET PO SCH ×2 (08:21→20:26)
[2020-11-27 16:49] VITALS: BP 116/69
[2020-11-28 08:53] VITALS: BP 115/62
[2020-11-28] MEDS: DIVALPROEX SODIUM 500 MG ER TABLET PO SCH ×2 (09:00→16:13)
[2020-11-28] MEDS: RisperiDONE 2 MG TABLET PO SCH ×2 (09:00→20:33)
[2020-11-28 16:13] VITALS: BP 129/96
[2020-11-28] MEDS: LORazepam 2 MG TABLET PO PRN (16:13)
[2020-11-28 16:41] VITALS: BP 129/96
[2020-11-29 08:43] VITALS: BP 120/70
[2020-11-29] MEDS: DIVALPROEX SODIUM 500 MG ER TABLET PO SCH ×2 (09:40→16:06)
[2020-11-29] MEDS: RisperiDONE 2 MG TABLET PO SCH ×2 (09:41→20:32)
[2020-11-29] MEDS: LORazepam 2 MG TABLET PO PRN (10:12)
[2020-11-29 16:30] VITALS: BP 111/61
[2020-11-29 22:13] LABS: COVID AG,FIA SOURCE NASAL SWAB
[2020-11-30 01:30] VITALS: BP 120/56
[2020-11-30 09:00] VITALS: BP 134/69
[2020-11-30] MEDS: DIVALPROEX SODIUM 500 MG ER TABLET PO SCH ×2 (09:33→17:46)
[2020-11-30] MEDS: RisperiDONE 2 MG TABLET PO SCH ×2 (09:33→21:09)
[2020-11-30 16:07] VITALS: BP 100/69
[2020-11-30] MEDS: HALOPERIDOL 5 MG TABLET PO PRN (17:47)
[2020-11-30] MEDS: LORazepam 2 MG TABLET PO PRN (17:47)
[2020-12-01 08:40] VITALS: BP 114/65
[2020-12-01] MEDS: DIVALPROEX SODIUM 500 MG ER TABLET PO SCH ×2 (10:13→17:15)
[2020-12-01] MEDS: RisperiDONE 2 MG TABLET PO SCH ×2 (10:13→20:40)
[2020-12-01] MEDS: LORazepam 2 MG TABLET PO PRN ×2 (11:29→20:40)
[2020-12-01 16:28] VITALS: BP 120/87
[2020-12-01] MEDS: HALOPERIDOL 5 MG TABLET PO PRN (17:16)
[2020-12-02 09:53] VITALS: BP 118/80
[2020-12-02] MEDS: DIVALPROEX SODIUM 500 MG ER TABLET PO SCH ×2 (10:03→17:48)
[2020-12-02] MEDS: RisperiDONE 2 MG TABLET PO SCH ×2 (10:03→20:50)
[2020-12-02 13:16] VITALS: BP 118/80
[2020-12-02 16:14] VITALS: BP 112/69
[2020-12-02] MEDS: HALOPERIDOL 5 MG TABLET PO PRN (17:48)
[2020-12-02] MEDS: LORazepam 2 MG TABLET PO PRN (20:50)
[2020-12-03 08:00] VITALS: BP 111/65
[2020-12-03] MEDS: DIVALPROEX SODIUM 500 MG ER TABLET PO SCH ×2 (09:00→16:28)
[2020-12-03] MEDS: RisperiDONE 2 MG TABLET PO SCH ×2 (09:00→20:48)
[2020-12-03] MEDS: LORazepam 2 MG TABLET PO PRN ×2 (13:29→17:50)
[2020-12-03 16:35] VITALS: BP 104/69
[2020-12-04 08:00] VITALS: BP 108/63
[2020-12-04] MEDS: RisperiDONE 2 MG TABLET PO SCH ×2 (08:42→20:05)
[2020-12-04] MEDS: LORazepam 2 MG TABLET PO PRN ×3 (08:42→19:26)
[2020-12-04] MEDS: DIVALPROEX SODIUM 500 MG ER TABLET PO SCH ×2 (08:42→16:01)
[2020-12-04 16:45] VITALS: BP 109/59
[2020-12-05] MEDS: RisperiDONE 2 MG TABLET PO SCH ×2 (09:18→20:32)
[2020-12-05] MEDS: DIVALPROEX SODIUM 500 MG ER TABLET PO SCH ×2 (09:18→17:14)
[2020-12-05 10:03] VITALS: BP 102/61
[2020-12-05] MEDS: LORazepam 2 MG TABLET PO PRN ×2 (11:12→20:32)
[2020-12-05 12:13] VITALS: BP 109/72
[2020-12-05 16:39] VITALS: BP 107/79
[2020-12-05] MEDS: HALOPERIDOL 5 MG TABLET PO PRN (17:14)
[2020-12-06 08:00] VITALS: BP 119/65
[2020-12-06] MEDS: LORazepam 2 MG TABLET PO PRN (09:20)
[2020-12-06] MEDS: RisperiDONE 2 MG TABLET PO SCH (09:21)
[2020-12-06] MEDS: DIVALPROEX SODIUM 500 MG ER TABLET PO SCH ×2 (09:21→16:39)
[2020-12-06 16:02] VITALS: BP 144/85
[2020-12-06 17:44] LABS: COVID AG,FIA SOURCE NASOPHARYNGEAL
[2020-12-06] MEDS: RisperiDONE 3 MG TABLET PO SCH (20:07)
[2020-12-06] MEDS: HALOPERIDOL 5 MG TABLET PO PRN (20:07)
[2020-12-07] MEDS: DIVALPROEX SODIUM 500 MG ER TABLET PO SCH ×2 (09:28→16:28)
[2020-12-07] MEDS: RisperiDONE 3 MG TABLET PO SCH ×2 (09:28→21:01)
[2020-12-07] MEDS: HALOPERIDOL 5 MG TABLET PO PRN (16:28)
[2020-12-07 16:44] VITALS: BP 98/69
[2020-12-07 17:19] VITALS: BP 112/75
[2020-12-07] MEDS: IBUPROFEN 600 MG TABLET PO PRN (17:19)
[2020-12-08 08:37] VITALS: BP 128/86
[2020-12-08] MEDS: DIVALPROEX SODIUM 500 MG ER TABLET PO SCH ×2 (08:54→16:39)
[2020-12-08] MEDS: RisperiDONE 3 MG TABLET PO SCH ×2 (08:54→20:12)
[2020-12-08 16:21] VITALS: BP 108/56
[2020-12-08] MEDS ORDERED: DIVA-80 PO (21:59)
[2020-12-08] MEDS ORDERED: RISP3TAB35 PO (22:00)
[2020-12-09] MEDS: RisperiDONE 3 MG TABLET PO SCH (08:20)
[2020-12-09] MEDS: DIVALPROEX SODIUM 500 MG ER TABLET PO SCH (08:20)
[2020-12-09 09:16] VITALS: BP 103/47
[2020-12-09] MEDS: IBUPROFEN 600 MG TABLET PO PRN (09:57)
[2020-12-21] MEDS ORDERED: PALIPERIDONE PALMITATE 234 MG/1.5 ML SYRINGE IM SCH (09:00)
== END 2020-12-09 14:56 | disposition home or self-care (01) | DRG 885 ==
LOC: EMS 02:44 → 3EX 05:10
PROVIDERS: ADMIT Psychiatry & Neurology Psychiatry; ATTEND Psychiatry & Neurology Psychiatry
DX: F25.9 Schizoaffective disorder, unspecified (principal); R45.851 Suicidal ideations; F17.210 Nicotine dependence, cigarettes, uncomplicated; D64.9 Anemia, unspecified; G47.00 Insomnia, unspecified; K59.00 Constipation, unspecified; F41.9 Anxiety disorder, unspecified; Z20.822 Contact with and (suspected) exposure to COVID-19; F19.10 Other psychoactive substance abuse, uncomplicated; Z71.6 Tobacco abuse counseling; Z71.51 Drug abuse counseling and surveillance of drug abuser
CPT/HCPCS: 80053; 80061; 80164; 83735; 84100; 85025; 87081; 99285; G0378; G0480; Q0162

== ENCOUNTER 2021-11-19 10:07 | Inpatient (IN) | payer MEDICARE, MEDICAID ==
[~2021-11-19] VITALS: Ht 185.4 cm; Wt 74.0 kg
[~2021-11-19 10:07] MED LIST changes: -PALI234D IM; -RISP2TAB76 PO; +RISP3TAB35 PO
[2021-11-19] MEDS ORDERED: ZOLPIDEM TARTRATE 10 MG TABLET PO PRN (12:30)
[2021-11-19 13:10] VITALS: BP 103/63
[2021-11-19] MEDS ORDERED: ACETAMINOPHEN 325 MG TABLET PO PRN (14:45)
[2021-11-19] MEDS ORDERED: PNEUMOCOCCAL VACCINE POLYVALENT 0.5 ML VIAL [PPSV23] IM. ONE (14:45)
[2021-11-19] MEDS ORDERED: ALBUTEROL SULFATE HFA 90 MCG/PUFF 8 GM INHALER IH PRN (14:45)
[2021-11-19] MEDS ORDERED: MAG HYDROX/AL HYDROX/SIMETH ES 30 ML SUSPENSION UDCUP PO PRN (14:45)
[2021-11-19] MEDS ORDERED: BACITRACIN 28 GM OINTMENT TP PRN (14:45)
[2021-11-19] MEDS ORDERED: CloNIDine HCL 0.1 MG TABLET PO PRN (14:45)
[2021-11-19] MEDS ORDERED: MAGNESIUM HYDROXIDE SUSPENSION 30 ML UDCUP PO PRN (14:45)
[2021-11-19] MEDS ORDERED: BENZOCAINE/MENTHOL LOZENGE PO PRN (14:45)
[2021-11-19] MEDS ORDERED: LOPERAMIDE HCL 2 MG CAPSULE PO PRN (14:45)
[2021-11-19] MEDS ORDERED: INFLUENZA VIRUS VACCINE QVS 2022-23 (6MO+)/PF 60 MCG/0.5 ML SYRINGE IM. ONE (14:45)
[2021-11-19] MEDS ORDERED: PETROLATUM,WHITE 28 GM JELLY TP PRN (14:45)
[2021-11-19] MEDS ORDERED: ONDANSETRON HCL 4 MG TABLET PO PRN (14:45)
[2021-11-19] MEDS: BACITRACIN 28 GM OINTMENT TP SCH (18:19)
[2021-11-19 20:24] VITALS: BP 108/69
[2021-11-20 07:25] LABS: BASOPHILS % (AUTO) 0.8 % (0.0-2.0); EOSINOPHILS % (AUTO) 3.5 % (1.0-6.0); HEMATOCRIT 39.3 % (41-53); HEMOGLOBIN 12.9 g/dL (13.5-17.5); LYMPHOCYTES # (AUTO) 2.5 K/uL (1.0-4.8); MEAN CORPUSCULAR HGB CONC 32.9 G/dL (31.0-37.0); MEAN CORPUSCULAR VOLUME 91 fL (80-100); MONOCYTES # (AUTO) 0.7 K/uL (0.1-1.0); MONOCYTES % (AUTO) 11.1 % (2.0-9.0); NEUTROPHILS % (AUTO) 46.6 % (40.0-70.0); PLATELET COUNT (AUTO) 255 K/uL (150-450); RED BLOOD CELL COUNT(AUTO) 4.31 MIL/uL (4.50-5.90); RED CELL DISTRIBUTION WIDTH 15.1 % (11.5-14.5)
[2021-11-20 07:45] LABS: ALANINE AMINOTRANSFERASE 26 U/L (12-78); ALBUMIN 3.8 g/dL (3.4-5.0); ALKALINE PHOSPHATASE 74 U/L (46-116); ANION GAP 1 mmol/L (8-16); ASPARTATE AMINOTRANSFERASE 20 U/L (15-37); BILIRUBIN,TOTAL 0.1 mg/dL (0.1-1.0); CALCIUM, TOTAL 9.5 mg/dL (8.8-10.5); CARBON DIOXIDE 32 mmol/L (22-29); CHLORIDE 103 mmol/L (98-107); CHOL/HDL RATIO 1.9 (4.2-7.3); CHOLESTEROL 168 mg/dL (131-200); CREATININE 0.68 mg/dL (0.60-1.30); GLUCOSE,RANDOM 84 mg/dL (70-110); HDL CHOLESTEROL 89 mg/dL (40-60); LDL CHOL (CALC.) 69 mg/dL (0-130); SODIUM SERUM 136 mmol/L (136-145); TOTAL PROTEIN, SERUM 7.7 g/dL (6.4-8.2); TRIGLYCERIDES 50 mg/dL (15-150); UREA NITROGEN, BLOOD 16 mg/dL (7-18)
[2021-11-20 07:49] LABS: GLOMERULAR FILTR. RATE CALC > 60 mL/min (>60)
[2021-11-20 07:52] LABS: HEMOGLOBIN A1C 4.9 % (3.8-5.6)
[2021-11-20] MEDS: OMEPRAZOLE 20 MG CAPSULE PO SCH (08:24)
[2021-11-20] MEDS: DOCUSATE SODIUM 100 MG CAPSULE PO SCH (08:24)
[2021-11-20] MEDS: LORazepam 2 MG TABLET PO PRN (08:24)
[2021-11-20] MEDS: HALOPERIDOL 5 MG TABLET PO PRN (08:24)
[2021-11-20] MEDS: BACITRACIN 28 GM OINTMENT TP SCH ×2 (08:25→16:56)
[2021-11-20 08:35] VITALS: BP 123/83
[2021-11-20 08:39] LABS: FREE T4 (FREE THYROXINE) 1.17 ng/dL (0.76-1.46); THYROID STIMULATING HORMONE 1.25 uIU/mL (0.36-3.74)
[2021-11-20] MEDS: IBUPROFEN 600 MG TABLET PO PRN (09:49)
[2021-11-20 20:03] VITALS: BP 119/79
[2021-11-20] MEDS: RisperiDONE 3 MG TABLET PO SCH (20:16)
[2021-11-21] MEDS: RisperiDONE 3 MG TABLET PO SCH ×2 (08:06→20:31)
[2021-11-21] MEDS: DOCUSATE SODIUM 100 MG CAPSULE PO SCH (08:06)
[2021-11-21] MEDS: OMEPRAZOLE 20 MG CAPSULE PO SCH (08:06)
[2021-11-21] MEDS: DIVALPROEX SODIUM 500 MG ER TABLET PO SCH ×2 (08:06→16:33)
[2021-11-21] MEDS: BACITRACIN 28 GM OINTMENT TP SCH ×2 (08:06→18:15)
[2021-11-21 08:54] VITALS: BP 130/70
[2021-11-21] MEDS: LORazepam 2 MG TABLET PO PRN ×2 (10:22→16:40)
[2021-11-21] MEDS: MULTIVITAMINS WITH MINERALS, THERAPEUTIC TABLET PO SCH (16:33)
[2021-11-21 20:27] VITALS: BP 113/70
[2021-11-22] MEDS: MULTIVITAMINS WITH MINERALS, THERAPEUTIC TABLET PO SCH (08:15)
[2021-11-22] MEDS: DOCUSATE SODIUM 100 MG CAPSULE PO SCH (08:15)
[2021-11-22] MEDS: DIVALPROEX SODIUM 500 MG ER TABLET PO SCH ×2 (08:15→17:12)
[2021-11-22] MEDS: RisperiDONE 3 MG TABLET PO SCH ×2 (08:15→21:00)
[2021-11-22] MEDS: BACITRACIN 28 GM OINTMENT TP SCH ×2 (08:15→17:12)
[2021-11-22] MEDS: OMEPRAZOLE 20 MG CAPSULE PO SCH (08:15)
[2021-11-22 08:53] VITALS: BP 109/62
[2021-11-22] MEDS: LORazepam 2 MG TABLET PO PRN ×2 (08:53→13:22)
[2021-11-22] MEDS: HALOPERIDOL 5 MG TABLET PO PRN (13:22)
[2021-11-22 21:48] VITALS: BP 140/90
[2021-11-23] MEDS: OMEPRAZOLE 20 MG CAPSULE PO SCH (08:08)
[2021-11-23] MEDS: DOCUSATE SODIUM 100 MG CAPSULE PO SCH (08:08)
[2021-11-23] MEDS: LORazepam 2 MG TABLET PO PRN ×2 (08:08→12:17)
[2021-11-23] MEDS: DIVALPROEX SODIUM 500 MG ER TABLET PO SCH ×2 (08:08→16:09)
[2021-11-23] MEDS: RisperiDONE 3 MG TABLET PO SCH ×2 (08:08→20:03)
[2021-11-23] MEDS: MULTIVITAMINS WITH MINERALS, THERAPEUTIC TABLET PO SCH (08:08)
[2021-11-23] MEDS: BACITRACIN 28 GM OINTMENT TP SCH ×2 (08:09→16:09)
[2021-11-23 09:50] VITALS: BP 109/78
[2021-11-23] MEDS: HALOPERIDOL 5 MG TABLET PO PRN ×2 (10:13→15:55)
[2021-11-24 05:46] VITALS: BP 109/60
[2021-11-24 08:17] VITALS: BP 103/65
[2021-11-24] MEDS: DOCUSATE SODIUM 100 MG CAPSULE PO SCH (08:30)
[2021-11-24] MEDS: DIVALPROEX SODIUM 500 MG ER TABLET PO SCH ×2 (08:30→16:32)
[2021-11-24] MEDS: MULTIVITAMINS WITH MINERALS, THERAPEUTIC TABLET PO SCH (08:31)
[2021-11-24] MEDS: RisperiDONE 3 MG TABLET PO SCH ×2 (08:31→20:49)
[2021-11-24] MEDS: OMEPRAZOLE 20 MG CAPSULE PO SCH (08:31)
[2021-11-24] MEDS: BACITRACIN 28 GM OINTMENT TP SCH ×2 (08:35→16:32)
[2021-11-24 09:26] LABS: GLUCOMETER DEV NAME(LOC) POC.BV
[2021-11-24] MEDS: LORazepam 2 MG TABLET PO PRN (10:09)
[2021-11-24] MEDS: HALOPERIDOL 5 MG TABLET PO PRN (16:28)
[2021-11-24] MEDS: IBUPROFEN 600 MG TABLET PO PRN (18:30)
[2021-11-24 18:31] VITALS: BP 114/67
[2021-11-25 08:15] VITALS: BP 116/90
[2021-11-25] MEDS: DOCUSATE SODIUM 100 MG CAPSULE PO SCH (09:12)
[2021-11-25] MEDS: OMEPRAZOLE 20 MG CAPSULE PO SCH (09:12)
[2021-11-25] MEDS: DIVALPROEX SODIUM 500 MG ER TABLET PO SCH ×2 (09:12→16:31)
[2021-11-25] MEDS: BACITRACIN 28 GM OINTMENT TP SCH ×2 (09:13→16:31)
[2021-11-25] MEDS: RisperiDONE 3 MG TABLET PO SCH ×2 (09:13→20:36)
[2021-11-25] MEDS: MULTIVITAMINS WITH MINERALS, THERAPEUTIC TABLET PO SCH (09:13)
[2021-11-25 15:59] VITALS: BP 116/63
[2021-11-25] MEDS: IBUPROFEN 600 MG TABLET PO PRN (16:01)
[2021-11-25 20:14] VITALS: BP 122/69
[2021-11-26 09:18] VITALS: BP 118/68
[2021-11-26] MEDS: MULTIVITAMINS WITH MINERALS, THERAPEUTIC TABLET PO SCH (09:43)
[2021-11-26] MEDS: RisperiDONE 3 MG TABLET PO SCH ×2 (09:43→21:13)
[2021-11-26] MEDS: DIVALPROEX SODIUM 500 MG ER TABLET PO SCH ×2 (09:43→16:49)
[2021-11-26] MEDS: DOCUSATE SODIUM 100 MG CAPSULE PO SCH (09:43)
[2021-11-26] MEDS: BACITRACIN 28 GM OINTMENT TP SCH ×2 (09:43→16:51)
[2021-11-26] MEDS: OMEPRAZOLE 20 MG CAPSULE PO SCH (09:43)
[2021-11-26] MEDS: IBUPROFEN 600 MG TABLET PO PRN (12:48)
[2021-11-26 20:11] VITALS: BP 135/83
[2021-11-26 22:00] VITALS: BP 126/72
[2021-11-27 04:27] VITALS: BP 132/73
[2021-11-27] MEDS: OMEPRAZOLE 20 MG CAPSULE PO SCH (08:10)
[2021-11-27] MEDS: DIVALPROEX SODIUM 500 MG ER TABLET PO SCH ×2 (08:11→16:31)
[2021-11-27] MEDS: RisperiDONE 3 MG TABLET PO SCH ×2 (08:11→20:08)
[2021-11-27] MEDS: MULTIVITAMINS WITH MINERALS, THERAPEUTIC TABLET PO SCH (08:11)
[2021-11-27 08:12] VITALS: BP 148/71
[2021-11-27] MEDS: HALOPERIDOL 5 MG TABLET PO PRN ×2 (08:35→12:43)
[2021-11-27] MEDS: BACITRACIN 28 GM OINTMENT TP SCH ×2 (08:55→16:32)
[2021-11-27] MEDS: DOCUSATE SODIUM 100 MG CAPSULE PO SCH (08:55)
[2021-11-27 20:08] VITALS: BP 113/56
[2021-11-28] MEDS: DOCUSATE SODIUM 100 MG CAPSULE PO SCH (08:12)
[2021-11-28] MEDS: OMEPRAZOLE 20 MG CAPSULE PO SCH (08:12)
[2021-11-28] MEDS: DIVALPROEX SODIUM 500 MG ER TABLET PO SCH ×2 (08:12→17:00)
[2021-11-28] MEDS: HALOPERIDOL 5 MG TABLET PO PRN (08:12)
[2021-11-28] MEDS: RisperiDONE 3 MG TABLET PO SCH ×2 (08:12→20:36)
[2021-11-28] MEDS: MULTIVITAMINS WITH MINERALS, THERAPEUTIC TABLET PO SCH (08:12)
[2021-11-28] MEDS: BACITRACIN 28 GM OINTMENT TP SCH ×2 (08:13→17:00)
[2021-11-28 08:32] VITALS: BP 108/60
[2021-11-28] MEDS: IBUPROFEN 600 MG TABLET PO PRN (10:34)
[2021-11-29 03:51] VITALS: BP 115/65
[2021-11-29 08:15] VITALS: BP 127/63
[2021-11-29] MEDS: BACITRACIN 28 GM OINTMENT TP SCH (09:00)
[2021-11-29] MEDS: OMEPRAZOLE 20 MG CAPSULE PO SCH (09:35)
[2021-11-29] MEDS: DIVALPROEX SODIUM 500 MG ER TABLET PO SCH ×2 (09:35→17:04)
[2021-11-29] MEDS: MULTIVITAMINS WITH MINERALS, THERAPEUTIC TABLET PO SCH (09:35)
[2021-11-29] MEDS: RisperiDONE 3 MG TABLET PO SCH ×2 (09:35→21:07)
[2021-11-29] MEDS: HALOPERIDOL 5 MG TABLET PO PRN ×2 (09:43→13:22)
[2021-11-29] MEDS: DOCUSATE SODIUM 100 MG CAPSULE PO SCH (09:47)
[2021-11-29] MEDS: IBUPROFEN 600 MG TABLET PO PRN (13:22)
[2021-11-29 21:19] VITALS: BP 112/77
[2021-11-30] MEDS: DOCUSATE SODIUM 100 MG CAPSULE PO SCH (08:00)
[2021-11-30] MEDS: DIVALPROEX SODIUM 500 MG ER TABLET PO SCH ×2 (08:00→16:40)
[2021-11-30] MEDS: RisperiDONE 3 MG TABLET PO SCH ×2 (08:00→20:31)
[2021-11-30] MEDS: MULTIVITAMINS WITH MINERALS, THERAPEUTIC TABLET PO SCH (08:00)
[2021-11-30] MEDS: OMEPRAZOLE 20 MG CAPSULE PO SCH (08:00)
[2021-11-30 08:54] VITALS: BP 108/72
[2021-11-30] MEDS: HALOPERIDOL 5 MG TABLET PO PRN ×2 (09:21→16:05)
[2021-11-30] MEDS: IBUPROFEN 600 MG TABLET PO PRN (09:45)
[2021-11-30 21:11] VITALS: BP 114/65
[2021-12-01 08:00] VITALS: BP 118/83
[2021-12-01] MEDS: RisperiDONE 3 MG TABLET PO SCH (08:23)
[2021-12-01] MEDS: MULTIVITAMINS WITH MINERALS, THERAPEUTIC TABLET PO SCH (08:23)
[2021-12-01] MEDS: DIVALPROEX SODIUM 500 MG ER TABLET PO SCH (08:23)
[2021-12-01] MEDS: DOCUSATE SODIUM 100 MG CAPSULE PO SCH (08:23)
[2021-12-01] MEDS: OMEPRAZOLE 20 MG CAPSULE PO SCH (08:23)
[2021-12-01 08:31] LABS: GLUCOMETER DEV NAME(LOC) POC.BV
[2021-12-01] MEDS ORDERED: DIVA-80 PO (14:04)
[2021-12-01] MEDS ORDERED: RISP3TAB63 PO (14:04)
== END 2021-12-01 14:30 | disposition home or self-care (01) | DRG 885 ==
LOC: B3A 12:19 → B2X 11-20 10:15
PROVIDERS: ADMIT Psychiatry & Neurology Psychiatry; ATTEND Psychiatry & Neurology Psychiatry
DX: F25.9 Schizoaffective disorder, unspecified (principal); D64.9 Anemia, unspecified; F32.A Depression, unspecified; G47.00 Insomnia, unspecified; K59.00 Constipation, unspecified; F41.9 Anxiety disorder, unspecified; Z20.822 Contact with and (suspected) exposure to COVID-19; Z79.899 Other long term (current) drug therapy; Z72.0 Tobacco use
CPT/HCPCS: 80053; 80061; 80164; 83036; 84439; 84443; 85025; 87081

== ENCOUNTER 2022-03-02 14:56 | Inpatient (IN) | payer MEDICARE, MEDICAID ==
[~2022-03-02] VITALS: Ht 188 cm; Wt 78.5 kg
[~2022-03-02 14:56] MED LIST changes: -DIVA-80 PO; +DIVA500T53 PO; -RISP3TAB35 PO; +RISP3TAB63 PO
[2022-03-02] MEDS ORDERED: PROMETHAZINE HCL 25 MG TABLET PO PRN (16:30)
[2022-03-02] MEDS ORDERED: GuaiFENesin/D-METHORPHAN [SUGAR-FREE] 200-20MG/10 ML SYRUP UDCUP PO PRN (16:30)
[2022-03-02] MEDS ORDERED: MAG HYDROX/AL HYDROX/SIMETH ES 30 ML SUSPENSION UDCUP PO PRN (16:30)
[2022-03-02] MEDS ORDERED: MAGNESIUM HYDROXIDE SUSPENSION 30 ML UDCUP PO PRN (16:30)
[2022-03-02] MEDS ORDERED: HydrOXYzine PAMOATE 50 MG CAPSULE PO PRN (16:30)
[2022-03-02] MEDS ORDERED: LOPERAMIDE HCL 2 MG CAPSULE PO PRN (16:30)
[2022-03-02] MEDS ORDERED: ZOLPIDEM TARTRATE 10 MG TABLET PO PRN (16:30)
[2022-03-02] MEDS ORDERED: TUBERCULIN, PURIFIED PROTEIN DERIVATIVE 5 TU/0.1 ML SYRINGE ID ONE (16:30)
[2022-03-02] MEDS ORDERED: INFLUENZA VIRUS VACCINE QVS 2022-23 (6MO+)/PF 60 MCG/0.5 ML SYRINGE IM. ONE (17:15)
[2022-03-02 18:22] VITALS: BP 103/68
[2022-03-02] MEDS: DIVALPROEX SODIUM 500 MG ER TABLET PO SCH (20:37)
[2022-03-02] MEDS: THIAMINE 100 MG TABLET PO SCH (20:37)
[2022-03-02] MEDS: MELATONIN 5 MG TABLET PO SCH (20:38)
[2022-03-02] MEDS ORDERED: OLANZapine 5 MG RAPDIS TABLET PO SCH (21:00)
[2022-03-03] VITALS: BP 103/68
[2022-03-03 07:38] LABS: BASOPHILS % (AUTO) 0.3 % (0.0-2.0); EOSINOPHILS % (AUTO) 1.5 % (1.0-6.0); HEMATOCRIT 37.7 % (41-53); HEMOGLOBIN 12.5 g/dL (13.5-17.5); LYMPHOCYTES # (AUTO) 1.9 K/uL (1.0-4.8); LYMPHOCYTES % (AUTO) 20.6 % (22.0-44.0); MEAN CORPUSCULAR HEMOGLOBIN 29.1 pg (26.0-34.0); MEAN CORPUSCULAR HGB CONC 33.1 G/dL (31.0-37.0); MEAN CORPUSCULAR VOLUME 88 fL (80-100); MONOCYTES # (AUTO) 0.8 K/uL (0.1-1.0); NEUTROPHILS # (AUTO) 6.6 K/uL (1.8-7.7); NEUTROPHILS % (AUTO) 69.6 % (40.0-70.0); PLATELET COUNT (AUTO) 347 K/uL (150-450); RED BLOOD CELL COUNT(AUTO) 4.29 MIL/uL (4.50-5.90)
[2022-03-03 07:49] LABS: HEMOGLOBIN A1C 5.5 % (3.8-5.6)
[2022-03-03 08:20] LABS: ALANINE AMINOTRANSFERASE 24 U/L (12-78); ALBUMIN 3.1 g/dL (3.4-5.0); ALKALINE PHOSPHATASE 86 U/L (46-116); ANION GAP 8 mmol/L (8-16); ASPARTATE AMINOTRANSFERASE 20 U/L (15-37); BILIRUBIN,TOTAL 0.3 mg/dL (0.1-1.0); CALCIUM, TOTAL 9.2 mg/dL (8.8-10.5); CARBON DIOXIDE 29 mmol/L (22-29); CHLORIDE 104 mmol/L (98-107); CHOL/HDL RATIO 1.7 (4.2-7.3); CHOLESTEROL 141 mg/dL (131-200); CREATININE 0.72 mg/dL (0.60-1.30); FREE T4 (FREE THYROXINE) 1.45 ng/dL (0.76-1.46); GLUCOSE,RANDOM 76 mg/dL (70-110); HDL CHOLESTEROL 84 mg/dL (40-60); LDL CHOL (CALC.) 50 mg/dL (0-130); POTASSIUM 4.1 mmol/L (3.5-5.1); SODIUM SERUM 141 mmol/L (136-145); THYROID STIMULATING HORMONE 1.32 uIU/mL (0.36-3.74); TOTAL PROTEIN, SERUM 7.3 g/dL (6.4-8.2); TRIGLYCERIDES 36 mg/dL (15-150); UREA NITROGEN, BLOOD 10 mg/dL (7-18)
[2022-03-03 08:21] LABS: GLOMERULAR FILTR. RATE CALC > 60 mL/min (>60)
[2022-03-03 08:24] VITALS: BP 112/64
[2022-03-03] MEDS: NALTREXONE HCL 50 MG TABLET PO SCH (08:35)
[2022-03-03] MEDS: OMEGA-3/DHA/EPA/FISH OIL 1,000 MG CAPSULE PO SCH (08:35)
[2022-03-03] MEDS: FOLIC ACID 1 MG TABLET PO SCH (08:35)
[2022-03-03] MEDS: THIAMINE 100 MG TABLET PO SCH ×2 (08:35→16:41)
[2022-03-03] MEDS: MULTIVITAMINS WITH MINERALS, THERAPEUTIC TABLET PO SCH (08:35)
[2022-03-03] MEDS ORDERED: PALIPERIDONE PALMITATE 234 MG/1.5 ML SYRINGE IM ONE (09:00)
[2022-03-03 20:08] VITALS: BP 106/68
[2022-03-03] MEDS: MELATONIN 5 MG TABLET PO SCH (20:38)
[2022-03-03] MEDS: DIVALPROEX SODIUM 500 MG ER TABLET PO SCH (20:38)
[2022-03-04 08:04] VITALS: BP 113/68
[2022-03-04] MEDS: MULTIVITAMINS WITH MINERALS, THERAPEUTIC TABLET PO SCH (09:27)
[2022-03-04] MEDS: NALTREXONE HCL 50 MG TABLET PO SCH (09:27)
[2022-03-04] MEDS: OMEGA-3/DHA/EPA/FISH OIL 1,000 MG CAPSULE PO SCH (09:27)
[2022-03-04] MEDS: THIAMINE 100 MG TABLET PO SCH ×2 (09:27→16:31)
[2022-03-04] MEDS: FOLIC ACID 1 MG TABLET PO SCH (09:27)
[2022-03-04] MEDS: LORazepam 2 MG TABLET PO PRN (10:04)
[2022-03-04] MEDS: OLANZapine 5 MG RAPDIS TABLET PO PRN (10:05)
[2022-03-04 20:08] VITALS: BP 116/69
[2022-03-04] MEDS: DIVALPROEX SODIUM 500 MG ER TABLET PO SCH (20:39)
[2022-03-04] MEDS: MELATONIN 5 MG TABLET PO SCH (20:39)
[2022-03-05 08:31] LABS: APPEARANCE,URINE CLEAR (CLEAR); BILIRUBIN,URINE NEGATIVE (NEGATIVE); GLUCOSE, URINE (UA) NEGATIVE (NEGATIVE); KETONES,URINE NEGATIVE (NEGATIVE); LEUKOCYTE ESTERASE ,URINE NEGATIVE (NEGATIVE); NITRATE,URINE NEGATIVE (NEGATIVE); OCCULT BLOOD,URINE NEGATIVE (NEGATIVE); PH,URINE 6.5 (5.0-8.0); PROTEIN,URINE NEGATIVE (NEGATIVE); SPECIFIC GRAVITIY, URINE 1.007 (1.003-1.030); UROBILINOGEN,URINE <=1.0 mg/dL (<=1.0)
[2022-03-05 08:34] LABS: AMPHET/METH SCREEN,URINE NEGATIVE (NEGATIVE); BARBITURATE SCREEN, URINE NEGATIVE (NEGATIVE); BENZODIAZEPINES SCREEN,URINE NEGATIVE (NEGATIVE); CANNABINOID SCREEN,URINE POSITIVE (NEGATIVE); COCAINE SCREEN,URINE NEGATIVE (NEGATIVE); METHADONE SCREEN, URINE NEGATIVE (NEGATIVE); OPIATE SCREEN,URINE NEGATIVE (NEGATIVE)
[2022-03-05 08:38] VITALS: BP 107/62
[2022-03-05] MEDS: OMEGA-3/DHA/EPA/FISH OIL 1,000 MG CAPSULE PO SCH (09:02)
[2022-03-05] MEDS: THIAMINE 100 MG TABLET PO SCH ×2 (09:02→16:44)
[2022-03-05] MEDS: MULTIVITAMINS WITH MINERALS, THERAPEUTIC TABLET PO SCH (09:02)
[2022-03-05] MEDS: NALTREXONE HCL 50 MG TABLET PO SCH (09:02)
[2022-03-05] MEDS: FOLIC ACID 1 MG TABLET PO SCH (09:02)
[2022-03-05 09:04] LABS: PHENCYCLIDINE SCREEN,URINE NEGATIVE (NEGATIVE)
[2022-03-05] MEDS: LORazepam 2 MG TABLET PO PRN (10:16)
[2022-03-05] MEDS: MELATONIN 5 MG TABLET PO SCH (20:30)
[2022-03-05] MEDS: DIVALPROEX SODIUM 500 MG ER TABLET PO SCH (20:30)
[2022-03-05 21:12] VITALS: BP 103/44
[2022-03-06 09:19] VITALS: BP 107/60
[2022-03-06] MEDS: OMEGA-3/DHA/EPA/FISH OIL 1,000 MG CAPSULE PO SCH (09:21)
[2022-03-06] MEDS: THIAMINE 100 MG TABLET PO SCH ×2 (09:21→16:50)
[2022-03-06] MEDS: MULTIVITAMINS WITH MINERALS, THERAPEUTIC TABLET PO SCH (09:22)
[2022-03-06] MEDS: FOLIC ACID 1 MG TABLET PO SCH (09:22)
[2022-03-06] MEDS: NALTREXONE HCL 50 MG TABLET PO SCH (09:22)
[2022-03-06] MEDS: LORazepam 2 MG TABLET PO PRN (14:36)
[2022-03-06 20:03] VITALS: BP 101/61
[2022-03-06] MEDS: DIVALPROEX SODIUM 500 MG ER TABLET PO SCH (20:42)
[2022-03-06] MEDS: MELATONIN 5 MG TABLET PO SCH (20:44)
[2022-03-07 08:10] VITALS: BP 137/64
[2022-03-07] MEDS: THIAMINE 100 MG TABLET PO SCH ×2 (08:23→16:35)
[2022-03-07] MEDS: NALTREXONE HCL 50 MG TABLET PO SCH (08:23)
[2022-03-07] MEDS: MULTIVITAMINS WITH MINERALS, THERAPEUTIC TABLET PO SCH (08:23)
[2022-03-07] MEDS: OMEGA-3/DHA/EPA/FISH OIL 1,000 MG CAPSULE PO SCH (08:23)
[2022-03-07] MEDS: FOLIC ACID 1 MG TABLET PO SCH (08:23)
[2022-03-07] MEDS ORDERED: PALIPERIDONE PALMITATE 156 MG/ML SYRINGE IM ONE (09:00)
[2022-03-07] MEDS: OLANZapine 5 MG RAPDIS TABLET PO PRN (14:49)
[2022-03-07] MEDS: LORazepam 2 MG TABLET PO PRN (16:35)
[2022-03-07] MEDS: MELATONIN 5 MG TABLET PO SCH (20:30)
[2022-03-07] MEDS: DIVALPROEX SODIUM 500 MG ER TABLET PO SCH (20:30)
[2022-03-07 20:41] VITALS: BP 112/61
[2022-03-08 08:16] LABS: GLUCOMETER DEV NAME(LOC) POC.BV
[2022-03-08 08:47] VITALS: BP 119/74
[2022-03-08] MEDS: OMEGA-3/DHA/EPA/FISH OIL 1,000 MG CAPSULE PO SCH (09:12)
[2022-03-08] MEDS: FOLIC ACID 1 MG TABLET PO SCH (09:12)
[2022-03-08] MEDS: NALTREXONE HCL 50 MG TABLET PO SCH (09:12)
[2022-03-08] MEDS: MULTIVITAMINS WITH MINERALS, THERAPEUTIC TABLET PO SCH (09:13)
[2022-03-08] MEDS: THIAMINE 100 MG TABLET PO SCH ×2 (09:13→16:41)
[2022-03-08] MEDS: OLANZapine 5 MG RAPDIS TABLET PO PRN (10:51)
[2022-03-08 20:02] VITALS: BP 110/69
[2022-03-08] MEDS: DIVALPROEX SODIUM 500 MG ER TABLET PO SCH (20:22)
[2022-03-08] MEDS: LORazepam 2 MG TABLET PO PRN (20:22)
[2022-03-08] MEDS: MELATONIN 5 MG TABLET PO SCH (20:23)
[2022-03-09 08:15] VITALS: BP 138/89
[2022-03-09] MEDS: OMEGA-3/DHA/EPA/FISH OIL 1,000 MG CAPSULE PO SCH (08:15)
[2022-03-09] MEDS: THIAMINE 100 MG TABLET PO SCH ×2 (08:15→16:42)
[2022-03-09] MEDS: FOLIC ACID 1 MG TABLET PO SCH (08:16)
[2022-03-09] MEDS: NALTREXONE HCL 50 MG TABLET PO SCH (08:16)
[2022-03-09] MEDS: MULTIVITAMINS WITH MINERALS, THERAPEUTIC TABLET PO SCH (08:16)
[2022-03-09] MEDS: OLANZapine 5 MG RAPDIS TABLET PO PRN (10:25)
[2022-03-09 20:24] VITALS: BP 105/68
[2022-03-09] MEDS: MELATONIN 5 MG TABLET PO SCH (20:33)
[2022-03-09] MEDS: DIVALPROEX SODIUM 500 MG ER TABLET PO SCH (20:33)
[2022-03-10 08:26] VITALS: BP 126/69
[2022-03-10] MEDS: FOLIC ACID 1 MG TABLET PO SCH (08:28)
[2022-03-10] MEDS: MULTIVITAMINS WITH MINERALS, THERAPEUTIC TABLET PO SCH (08:28)
[2022-03-10] MEDS: THIAMINE 100 MG TABLET PO SCH ×2 (08:28→16:31)
[2022-03-10] MEDS: NALTREXONE HCL 50 MG TABLET PO SCH (08:28)
[2022-03-10] MEDS: OMEGA-3/DHA/EPA/FISH OIL 1,000 MG CAPSULE PO SCH (08:29)
[2022-03-10] MEDS: LORazepam 2 MG TABLET PO PRN ×2 (11:42→16:08)
[2022-03-10] MEDS: OLANZapine 5 MG RAPDIS TABLET PO PRN (16:08)
[2022-03-10 20:09] VITALS: BP 105/58
[2022-03-10] MEDS: DIVALPROEX SODIUM 500 MG ER TABLET PO SCH (20:41)
[2022-03-10] MEDS: MELATONIN 5 MG TABLET PO SCH (20:41)
[2022-03-11 08:27] VITALS: BP 113/61
[2022-03-11] MEDS: THIAMINE 100 MG TABLET PO SCH ×2 (09:47→16:37)
[2022-03-11] MEDS: NALTREXONE HCL 50 MG TABLET PO SCH (09:47)
[2022-03-11] MEDS: MULTIVITAMINS WITH MINERALS, THERAPEUTIC TABLET PO SCH (09:47)
[2022-03-11] MEDS: FOLIC ACID 1 MG TABLET PO SCH (09:47)
[2022-03-11] MEDS: OMEGA-3/DHA/EPA/FISH OIL 1,000 MG CAPSULE PO SCH (09:47)
[2022-03-11 20:02] VITALS: BP 112/68
[2022-03-11] MEDS: DIVALPROEX SODIUM 500 MG ER TABLET PO SCH (20:41)
[2022-03-11] MEDS: MELATONIN 5 MG TABLET PO SCH (20:41)
[2022-03-12 08:17] VITALS: BP 109/63
[2022-03-12] MEDS: NALTREXONE HCL 50 MG TABLET PO SCH (08:25)
[2022-03-12] MEDS: THIAMINE 100 MG TABLET PO SCH (08:25)
[2022-03-12] MEDS: MULTIVITAMINS WITH MINERALS, THERAPEUTIC TABLET PO SCH (08:25)
[2022-03-12] MEDS: FOLIC ACID 1 MG TABLET PO SCH (08:25)
[2022-03-12] MEDS: OMEGA-3/DHA/EPA/FISH OIL 1,000 MG CAPSULE PO SCH (08:25)
[2022-03-12] MEDS: OLANZapine 5 MG RAPDIS TABLET PO PRN (09:53)
[2022-03-12] MEDS: DIVALPROEX SODIUM 500 MG ER TABLET PO SCH (21:05)
[2022-03-12] MEDS: MELATONIN 5 MG TABLET PO SCH (21:05)
[2022-03-12 21:06] VITALS: BP 112/63
[2022-03-13 08:57] VITALS: BP 107/69
[2022-03-13] MEDS: OMEGA-3/DHA/EPA/FISH OIL 1,000 MG CAPSULE PO SCH (09:11)
[2022-03-13] MEDS: MULTIVITAMINS WITH MINERALS, THERAPEUTIC TABLET PO SCH (09:11)
[2022-03-13] MEDS: NALTREXONE HCL 50 MG TABLET PO SCH (09:12)
[2022-03-13] MEDS: LORazepam 2 MG TABLET PO PRN (10:53)
[2022-03-13] MEDS: OLANZapine 5 MG RAPDIS TABLET PO PRN (10:53)
[2022-03-13] MEDS: ACETAMINOPHEN 325 MG TABLET PO PRN ×2 (13:15→17:24)
[2022-03-13 20:31] VITALS: BP 111/58
[2022-03-13] MEDS: MELATONIN 5 MG TABLET PO SCH (20:32)
[2022-03-13] MEDS: DIVALPROEX SODIUM 500 MG ER TABLET PO SCH (20:32)
[2022-03-14] MEDS: MULTIVITAMINS WITH MINERALS, THERAPEUTIC TABLET PO SCH (08:25)
[2022-03-14] MEDS: NALTREXONE HCL 50 MG TABLET PO SCH (08:25)
[2022-03-14] MEDS: OMEGA-3/DHA/EPA/FISH OIL 1,000 MG CAPSULE PO SCH (08:25)
[2022-03-14 09:15] VITALS: BP 114/54
[2022-03-14] MEDS: OLANZapine 5 MG RAPDIS TABLET PO PRN (13:22)
[2022-03-14 20:08] VITALS: BP 108/58
[2022-03-14] MEDS: DIVALPROEX SODIUM 500 MG ER TABLET PO SCH (20:25)
[2022-03-14] MEDS: MELATONIN 5 MG TABLET PO SCH (20:26)
[2022-03-15] MEDS: OMEGA-3/DHA/EPA/FISH OIL 1,000 MG CAPSULE PO SCH (08:08)
[2022-03-15] MEDS: MULTIVITAMINS WITH MINERALS, THERAPEUTIC TABLET PO SCH (08:08)
[2022-03-15] MEDS: NALTREXONE HCL 50 MG TABLET PO SCH (08:08)
[2022-03-15 09:45] LABS: GLUCOMETER DEV NAME(LOC) POC.BV
[2022-03-15] MEDS: LORazepam 2 MG TABLET PO PRN ×2 (09:48→15:24)
[2022-03-15] MEDS: OLANZapine 5 MG RAPDIS TABLET PO PRN ×2 (09:49→15:24)
[2022-03-15 10:56] VITALS: BP 104/60
[2022-03-15] MEDS: DIVALPROEX SODIUM 500 MG ER TABLET PO SCH (20:22)
[2022-03-15] MEDS: MELATONIN 5 MG TABLET PO SCH (20:23)
[2022-03-15 21:04] VITALS: BP 103/60
[2022-03-16 08:19] VITALS: BP 110/69
[2022-03-16] MEDS: MULTIVITAMINS WITH MINERALS, THERAPEUTIC TABLET PO SCH (09:02)
[2022-03-16] MEDS: NALTREXONE HCL 50 MG TABLET PO SCH (09:02)
[2022-03-16] MEDS: OMEGA-3/DHA/EPA/FISH OIL 1,000 MG CAPSULE PO SCH (09:02)
[2022-03-16] MEDS: OLANZapine 5 MG RAPDIS TABLET PO PRN (16:24)
[2022-03-16] MEDS: LORazepam 2 MG TABLET PO PRN (16:24)
[2022-03-16] MEDS: DIVALPROEX SODIUM 500 MG ER TABLET PO SCH (20:56)
[2022-03-16] MEDS: MELATONIN 5 MG TABLET PO SCH (20:56)
[2022-03-16 21:35] VITALS: BP 102/66
[2022-03-17 08:53] VITALS: BP 116/66
[2022-03-17] MEDS: MULTIVITAMINS WITH MINERALS, THERAPEUTIC TABLET PO SCH (09:33)
[2022-03-17] MEDS: NALTREXONE HCL 50 MG TABLET PO SCH (09:33)
[2022-03-17] MEDS: OMEGA-3/DHA/EPA/FISH OIL 1,000 MG CAPSULE PO SCH (09:33)
[2022-03-17 13:36] LABS: GLUCOMETER DEV NAME(LOC) BV2X.2; GLUCOSE,POINT OF CARE 94 MG/DL (70-110)
[2022-03-17 20:09] VITALS: BP 118/62
[2022-03-17] MEDS: DIVALPROEX SODIUM 500 MG ER TABLET PO SCH (20:31)
[2022-03-17] MEDS: MELATONIN 5 MG TABLET PO SCH (20:31)
[2022-03-18 08:05] VITALS: BP 120/72
[2022-03-18] MEDS: MULTIVITAMINS WITH MINERALS, THERAPEUTIC TABLET PO SCH (08:08)
[2022-03-18] MEDS: NALTREXONE HCL 50 MG TABLET PO SCH (08:08)
[2022-03-18] MEDS: OMEGA-3/DHA/EPA/FISH OIL 1,000 MG CAPSULE PO SCH (08:08)
[2022-03-18] MEDS: OLANZapine 5 MG RAPDIS TABLET PO PRN (10:00)
[2022-03-18] MEDS: MELATONIN 5 MG TABLET PO SCH (20:33)
[2022-03-18] MEDS: DIVALPROEX SODIUM 500 MG ER TABLET PO SCH (20:33)
[2022-03-18 20:49] VITALS: BP 102/60
[2022-03-18] MEDS ORDERED: BISMUTH SUBSALICYLATE 262 MG CHEWABLE TABLET CHEW PRN (21:30)
[2022-03-19] MEDS: MULTIVITAMINS WITH MINERALS, THERAPEUTIC TABLET PO SCH (08:15)
[2022-03-19] MEDS: NALTREXONE HCL 50 MG TABLET PO SCH (08:15)
[2022-03-19] MEDS: OMEGA-3/DHA/EPA/FISH OIL 1,000 MG CAPSULE PO SCH (08:16)
[2022-03-19 08:42] VITALS: BP 132/77
[2022-03-19] MEDS: LORazepam 2 MG TABLET PO PRN ×2 (10:50→16:14)
[2022-03-19] MEDS: OLANZapine 5 MG RAPDIS TABLET PO PRN (14:00)
[2022-03-19] MEDS: DIVALPROEX SODIUM 500 MG ER TABLET PO SCH (20:05)
[2022-03-19] MEDS: MELATONIN 5 MG TABLET PO SCH (20:05)
[2022-03-19 20:24] VITALS: BP 102/63
[2022-03-20 08:06] VITALS: BP 104/60
[2022-03-20] MEDS: MULTIVITAMINS WITH MINERALS, THERAPEUTIC TABLET PO SCH (08:42)
[2022-03-20] MEDS: OMEGA-3/DHA/EPA/FISH OIL 1,000 MG CAPSULE PO SCH (08:42)
[2022-03-20] MEDS: NALTREXONE HCL 50 MG TABLET PO SCH (08:42)
[2022-03-20] MEDS: OLANZapine 5 MG RAPDIS TABLET PO PRN (10:51)
[2022-03-20 20:06] VITALS: BP 106/63
[2022-03-20] MEDS: MELATONIN 5 MG TABLET PO SCH (20:34)
[2022-03-20] MEDS: DIVALPROEX SODIUM 500 MG ER TABLET PO SCH (20:34)
[2022-03-21] MEDS: NALTREXONE HCL 50 MG TABLET PO SCH (08:41)
[2022-03-21] MEDS: OMEGA-3/DHA/EPA/FISH OIL 1,000 MG CAPSULE PO SCH (08:41)
[2022-03-21] MEDS: MULTIVITAMINS WITH MINERALS, THERAPEUTIC TABLET PO SCH (08:41)
[2022-03-21 13:11] VITALS: BP 120/63
[2022-03-21] MEDS: DIVALPROEX SODIUM 500 MG ER TABLET PO SCH (20:34)
[2022-03-21] MEDS: MELATONIN 5 MG TABLET PO SCH (20:34)
[2022-03-21 21:26] VITALS: BP 108/72
[2022-03-22 08:11] LABS: GLUCOMETER DEV NAME(LOC) POC.BV
[2022-03-22] MEDS: MULTIVITAMINS WITH MINERALS, THERAPEUTIC TABLET PO SCH (08:43)
[2022-03-22] MEDS: NALTREXONE HCL 50 MG TABLET PO SCH (08:43)
[2022-03-22] MEDS: OMEGA-3/DHA/EPA/FISH OIL 1,000 MG CAPSULE PO SCH (08:44)
[2022-03-22 09:02] VITALS: BP 106/53
[2022-03-22] MEDS: OLANZapine 5 MG RAPDIS TABLET PO PRN (10:24)
[2022-03-22 20:05] VITALS: BP 105/55
[2022-03-22] MEDS: DIVALPROEX SODIUM 500 MG ER TABLET PO SCH (20:20)
[2022-03-22] MEDS: MELATONIN 5 MG TABLET PO SCH (20:23)
[2022-03-23] MEDS: MULTIVITAMINS WITH MINERALS, THERAPEUTIC TABLET PO SCH (08:25)
[2022-03-23] MEDS: OMEGA-3/DHA/EPA/FISH OIL 1,000 MG CAPSULE PO SCH (08:25)
[2022-03-23] MEDS: NALTREXONE HCL 50 MG TABLET PO SCH (08:25)
[2022-03-23 08:28] VITALS: BP 111/60
[2022-03-23] MEDS: OLANZapine 5 MG RAPDIS TABLET PO PRN ×2 (08:43→16:27)
[2022-03-23 20:05] VITALS: BP 104/64
[2022-03-23] MEDS: MELATONIN 5 MG TABLET PO SCH (20:39)
[2022-03-23] MEDS: DIVALPROEX SODIUM 500 MG ER TABLET PO SCH (20:39)
[2022-03-24] MEDS: MULTIVITAMINS WITH MINERALS, THERAPEUTIC TABLET PO SCH (08:29)
[2022-03-24] MEDS: OMEGA-3/DHA/EPA/FISH OIL 1,000 MG CAPSULE PO SCH (08:29)
[2022-03-24] MEDS: NALTREXONE HCL 50 MG TABLET PO SCH (08:29)
[2022-03-24] MEDS: LORazepam 2 MG TABLET PO PRN (08:36)
[2022-03-24 08:50] VITALS: BP 104/71
[2022-03-24] MEDS: IBUPROFEN 600 MG TABLET PO PRN (10:09)
[2022-03-24] MEDS: OLANZapine 5 MG RAPDIS TABLET PO PRN (11:00)
[2022-03-24] MEDS: MELATONIN 5 MG TABLET PO SCH (20:22)
[2022-03-24] MEDS: DIVALPROEX SODIUM 500 MG ER TABLET PO SCH (20:22)
[2022-03-24 20:45] VITALS: BP 105/64
[2022-03-25] MEDS: NALTREXONE HCL 50 MG TABLET PO SCH (08:57)
[2022-03-25] MEDS: MULTIVITAMINS WITH MINERALS, THERAPEUTIC TABLET PO SCH (08:57)
[2022-03-25] MEDS: OMEGA-3/DHA/EPA/FISH OIL 1,000 MG CAPSULE PO SCH (08:57)
[2022-03-25 09:10] VITALS: BP 110/60
[2022-03-25] MEDS: IBUPROFEN 600 MG TABLET PO PRN (15:59)
[2022-03-25 16:06] VITALS: BP 112/64
[2022-03-25 20:06] VITALS: BP 101/69
[2022-03-25] MEDS: DIVALPROEX SODIUM 500 MG ER TABLET PO SCH (20:33)
[2022-03-25] MEDS: MELATONIN 5 MG TABLET PO SCH (20:33)
[2022-03-26 08:30] VITALS: BP 114/67
[2022-03-26] MEDS: MULTIVITAMINS WITH MINERALS, THERAPEUTIC TABLET PO SCH (08:45)
[2022-03-26] MEDS: NALTREXONE HCL 50 MG TABLET PO SCH (08:46)
[2022-03-26] MEDS: OMEGA-3/DHA/EPA/FISH OIL 1,000 MG CAPSULE PO SCH (08:46)
[2022-03-26] MEDS: LORazepam 2 MG TABLET PO PRN (11:22)
[2022-03-26] MEDS ORDERED: TUBERCULIN, PURIFIED PROTEIN DERIVATIVE 5 TU/0.1 ML SYRINGE ID ONE (15:15)
[2022-03-26 20:00] VITALS: BP 105/61
[2022-03-26] MEDS: MELATONIN 5 MG TABLET PO SCH (21:32)
[2022-03-26] MEDS: DIVALPROEX SODIUM 500 MG ER TABLET PO SCH (21:32)
[2022-03-27 08:16] VITALS: BP 115/63
[2022-03-27] MEDS: MULTIVITAMINS WITH MINERALS, THERAPEUTIC TABLET PO SCH (08:25)
[2022-03-27] MEDS: NALTREXONE HCL 50 MG TABLET PO SCH (08:25)
[2022-03-27] MEDS: OMEGA-3/DHA/EPA/FISH OIL 1,000 MG CAPSULE PO SCH (08:26)
[2022-03-27] MEDS: IBUPROFEN 600 MG TABLET PO PRN (08:26)
[2022-03-27] MEDS: LORazepam 2 MG TABLET PO PRN ×2 (08:30→16:43)
[2022-03-27 20:09] VITALS: BP 122/69
[2022-03-27] MEDS: DIVALPROEX SODIUM 500 MG ER TABLET PO SCH (20:34)
[2022-03-27] MEDS: MELATONIN 5 MG TABLET PO SCH (20:34)
[2022-03-28 08:30] VITALS: BP 128/78
[2022-03-28] MEDS: MULTIVITAMINS WITH MINERALS, THERAPEUTIC TABLET PO SCH (08:59)
[2022-03-28] MEDS: NALTREXONE HCL 50 MG TABLET PO SCH (08:59)
[2022-03-28] MEDS: OMEGA-3/DHA/EPA/FISH OIL 1,000 MG CAPSULE PO SCH (08:59)
[2022-03-28] MEDS: LORazepam 2 MG TABLET PO PRN (09:03)
[2022-03-28] MEDS: IBUPROFEN 600 MG TABLET PO PRN (14:19)
[2022-03-28] MEDS: MELATONIN 5 MG TABLET PO SCH (20:08)
[2022-03-28] MEDS: DIVALPROEX SODIUM 500 MG ER TABLET PO SCH (20:29)
[2022-03-28 22:09] VITALS: BP 114/79
[2022-03-29 08:16] VITALS: BP 120/73
[2022-03-29] MEDS: MULTIVITAMINS WITH MINERALS, THERAPEUTIC TABLET PO SCH (08:36)
[2022-03-29] MEDS: NALTREXONE HCL 50 MG TABLET PO SCH (08:36)
[2022-03-29] MEDS: OMEGA-3/DHA/EPA/FISH OIL 1,000 MG CAPSULE PO SCH (08:36)
[2022-03-29 10:23] LABS: GLUCOMETER DEV NAME(LOC) POC.BV
[2022-03-29] MEDS: IBUPROFEN 600 MG TABLET PO PRN (15:55)
[2022-03-29] MEDS: DIVALPROEX SODIUM 500 MG ER TABLET PO SCH (20:08)
[2022-03-29] MEDS: MELATONIN 5 MG TABLET PO SCH (20:08)
[2022-03-29 23:55] VITALS: BP 106/76
[2022-03-30 08:13] VITALS: BP 117/73
[2022-03-30] MEDS: OMEGA-3/DHA/EPA/FISH OIL 1,000 MG CAPSULE PO SCH (09:06)
[2022-03-30] MEDS: MULTIVITAMINS WITH MINERALS, THERAPEUTIC TABLET PO SCH (09:06)
[2022-03-30] MEDS: NALTREXONE HCL 50 MG TABLET PO SCH (09:06)
[2022-03-30] MEDS: IBUPROFEN 600 MG TABLET PO PRN (11:39)
[2022-03-30 11:40] VITALS: BP 111/82
[2022-03-30 20:19] VITALS: BP 109/58
[2022-03-30] MEDS: DIVALPROEX SODIUM 500 MG ER TABLET PO SCH (20:37)
[2022-03-30] MEDS: MELATONIN 5 MG TABLET PO SCH (20:37)
[2022-03-31 08:10] VITALS: BP 119/69
[2022-03-31] MEDS: IBUPROFEN 600 MG TABLET PO PRN ×2 (08:12→14:15)
[2022-03-31] MEDS: OMEGA-3/DHA/EPA/FISH OIL 1,000 MG CAPSULE PO SCH (08:30)
[2022-03-31] MEDS: NALTREXONE HCL 50 MG TABLET PO SCH (08:30)
[2022-03-31] MEDS: MULTIVITAMINS WITH MINERALS, THERAPEUTIC TABLET PO SCH (08:30)
[2022-03-31] MEDS: LORazepam 2 MG TABLET PO PRN (09:33)
[2022-03-31 14:12] VITALS: BP 111/75
[2022-03-31] MEDS ORDERED: BISACODYL 5 MG EC TABLET PO PRN (19:45)
[2022-03-31 20:06] VITALS: BP 102/61
[2022-03-31] MEDS: MELATONIN 5 MG TABLET PO SCH (20:31)
[2022-03-31] MEDS: DIVALPROEX SODIUM 500 MG ER TABLET PO SCH (20:32)
[2022-04-01 08:12] VITALS: BP 133/76
[2022-04-01] MEDS: NALTREXONE HCL 50 MG TABLET PO SCH (08:24)
[2022-04-01] MEDS: MULTIVITAMINS WITH MINERALS, THERAPEUTIC TABLET PO SCH (08:24)
[2022-04-01] MEDS: OMEGA-3/DHA/EPA/FISH OIL 1,000 MG CAPSULE PO SCH (08:24)
[2022-04-01] MEDS: IBUPROFEN 600 MG TABLET PO PRN (10:47)
[2022-04-01] MEDS: DIVALPROEX SODIUM 500 MG ER TABLET PO SCH (20:25)
[2022-04-01] MEDS: MELATONIN 5 MG TABLET PO SCH (20:25)
[2022-04-01 21:36] VITALS: BP 100/63
[2022-04-02] MEDS: OMEGA-3/DHA/EPA/FISH OIL 1,000 MG CAPSULE PO SCH (08:08)
[2022-04-02] MEDS: NALTREXONE HCL 50 MG TABLET PO SCH (08:08)
[2022-04-02] MEDS: MULTIVITAMINS WITH MINERALS, THERAPEUTIC TABLET PO SCH (08:08)
[2022-04-02 09:54] VITALS: BP 100/60
[2022-04-02] MEDS: ACETAMINOPHEN 325 MG TABLET PO PRN (15:43)
[2022-04-02] MEDS: NICOTINE 14 MG/24 HOUR PATCH TD SCH (16:05)
[2022-04-02] MEDS: DIVALPROEX SODIUM 500 MG ER TABLET PO SCH (20:02)
[2022-04-02] MEDS: MELATONIN 5 MG TABLET PO SCH (20:02)
[2022-04-02 20:07] VITALS: BP 101/65
[2022-04-03 08:28] VITALS: BP 100/61
[2022-04-03] MEDS: OMEGA-3/DHA/EPA/FISH OIL 1,000 MG CAPSULE PO SCH (08:53)
[2022-04-03] MEDS: NALTREXONE HCL 50 MG TABLET PO SCH (08:53)
[2022-04-03] MEDS: MULTIVITAMINS WITH MINERALS, THERAPEUTIC TABLET PO SCH (08:53)
[2022-04-03] MEDS: NICOTINE 14 MG/24 HOUR PATCH TD SCH (08:54)
[2022-04-03] MEDS ORDERED: PETROLATUM,WHITE 28 GM JELLY TP ONE (16:02)
[2022-04-03 16:07] VITALS: BP 105/61
[2022-04-03] MEDS: LORazepam 2 MG TABLET PO PRN (16:12)
[2022-04-03] MEDS: MELATONIN 5 MG TABLET PO SCH (20:01)
[2022-04-03] MEDS: DIVALPROEX SODIUM 500 MG ER TABLET PO SCH (20:01)
[2022-04-04] MEDS: OMEGA-3/DHA/EPA/FISH OIL 1,000 MG CAPSULE PO SCH (08:16)
[2022-04-04] MEDS: NALTREXONE HCL 50 MG TABLET PO SCH (08:16)
[2022-04-04] MEDS: MULTIVITAMINS WITH MINERALS, THERAPEUTIC TABLET PO SCH (08:16)
[2022-04-04 08:34] VITALS: BP 118/70
[2022-04-04] MEDS: NICOTINE 14 MG/24 HOUR PATCH TD SCH (09:20)
[2022-04-04] MEDS: ACETAMINOPHEN 325 MG TABLET PO PRN (10:42)
[2022-04-04] MEDS: IBUPROFEN 600 MG TABLET PO PRN (13:40)
[2022-04-04] MEDS: LORazepam 2 MG TABLET PO PRN (14:34)
[2022-04-04 20:10] VITALS: BP 107/69
[2022-04-04] MEDS: MELATONIN 5 MG TABLET PO SCH (20:28)
[2022-04-04] MEDS: DIVALPROEX SODIUM 500 MG ER TABLET PO SCH (20:29)
[2022-04-05 08:27] VITALS: BP_SYST 100; BP_SYST 104; BP_DIAS 67; BP_DIAS 72
[2022-04-05] MEDS: NICOTINE 14 MG/24 HOUR PATCH TD SCH (08:38)
[2022-04-05] MEDS: NALTREXONE HCL 50 MG TABLET PO SCH (08:38)
[2022-04-05] MEDS: MULTIVITAMINS WITH MINERALS, THERAPEUTIC TABLET PO SCH (08:38)
[2022-04-05] MEDS: OMEGA-3/DHA/EPA/FISH OIL 1,000 MG CAPSULE PO SCH (08:39)
[2022-04-05 08:42] LABS: GLUCOMETER DEV NAME(LOC) POC.BV
[2022-04-05] MEDS: LORazepam 2 MG TABLET PO PRN (10:41)
[2022-04-05 13:45] VITALS: BP 110/61
[2022-04-05] MEDS: IBUPROFEN 600 MG TABLET PO PRN (13:49)
[2022-04-05] MEDS: OLANZapine 5 MG RAPDIS TABLET PO PRN (15:06)
[2022-04-05] MEDS: DIVALPROEX SODIUM 500 MG ER TABLET PO SCH (20:33)
[2022-04-05] MEDS: MELATONIN 5 MG TABLET PO SCH (20:33)
[2022-04-05 20:40] VITALS: BP 104/65
[2022-04-06] MEDS: NALTREXONE HCL 50 MG TABLET PO SCH (09:09)
[2022-04-06] MEDS: NICOTINE 14 MG/24 HOUR PATCH TD SCH (09:09)
[2022-04-06] MEDS: MULTIVITAMINS WITH MINERALS, THERAPEUTIC TABLET PO SCH (09:09)
[2022-04-06] MEDS: OMEGA-3/DHA/EPA/FISH OIL 1,000 MG CAPSULE PO SCH (09:09)
[2022-04-06 09:21] VITALS: BP 107/63
[2022-04-06] MEDS: ACETAMINOPHEN 325 MG TABLET PO PRN (15:59)
[2022-04-06 20:04] VITALS: BP 100/69
[2022-04-06] MEDS: MELATONIN 5 MG TABLET PO SCH (20:34)
[2022-04-06] MEDS: DIVALPROEX SODIUM 500 MG ER TABLET PO SCH (20:34)
[2022-04-07] MEDS: NALTREXONE HCL 50 MG TABLET PO SCH (08:20)
[2022-04-07] MEDS: NICOTINE 14 MG/24 HOUR PATCH TD SCH (08:20)
[2022-04-07] MEDS: MULTIVITAMINS WITH MINERALS, THERAPEUTIC TABLET PO SCH (08:20)
[2022-04-07] MEDS: OMEGA-3/DHA/EPA/FISH OIL 1,000 MG CAPSULE PO SCH (08:20)
[2022-04-07 09:21] VITALS: BP 120/68
[2022-04-07] MEDS: ACETAMINOPHEN 325 MG TABLET PO PRN ×2 (10:21→15:46)
[2022-04-07 20:09] VITALS: BP 110/68
[2022-04-07] MEDS: MELATONIN 5 MG TABLET PO SCH (20:36)
[2022-04-07] MEDS: DIVALPROEX SODIUM 500 MG ER TABLET PO SCH (20:36)
[2022-04-08] MEDS: OMEGA-3/DHA/EPA/FISH OIL 1,000 MG CAPSULE PO SCH (08:19)
[2022-04-08] MEDS: NALTREXONE HCL 50 MG TABLET PO SCH (08:19)
[2022-04-08] MEDS: NICOTINE 14 MG/24 HOUR PATCH TD SCH (08:19)
[2022-04-08] MEDS: MULTIVITAMINS WITH MINERALS, THERAPEUTIC TABLET PO SCH (08:19)
[2022-04-08 08:21] VITALS: BP 110/66
[2022-04-08] MEDS: LORazepam 2 MG TABLET PO PRN (09:28)
[2022-04-08] MEDS: ACETAMINOPHEN 325 MG TABLET PO PRN (12:17)
[2022-04-08 20:09] VITALS: BP 112/60
[2022-04-08] MEDS: DIVALPROEX SODIUM 500 MG ER TABLET PO SCH (20:32)
[2022-04-08] MEDS: MELATONIN 5 MG TABLET PO SCH (20:32)
[2022-04-09 07:22] LABS: BASOPHILS % (AUTO) 0.4 % (0.0-2.0); EOSINOPHILS % (AUTO) 2.2 % (1.0-6.0); HEMATOCRIT 37.6 % (41-53); HEMOGLOBIN 12.6 g/dL (13.5-17.5); LYMPHOCYTES # (AUTO) 2.6 K/uL (1.0-4.8); LYMPHOCYTES % (AUTO) 27.5 % (22.0-44.0); MEAN CORPUSCULAR HEMOGLOBIN 29.6 pg (26.0-34.0); MEAN CORPUSCULAR HGB CONC 33.6 G/dL (31.0-37.0); MEAN CORPUSCULAR VOLUME 88 fL (80-100); MONOCYTES # (AUTO) 0.9 K/uL (0.1-1.0); MONOCYTES % (AUTO) 9.4 % (2.0-9.0); NEUTROPHILS # (AUTO) 5.7 K/uL (1.8-7.7); NEUTROPHILS % (AUTO) 60.5 % (40.0-70.0); PLATELET COUNT (AUTO) 194 K/uL (150-450); RED BLOOD CELL COUNT(AUTO) 4.27 MIL/uL (4.50-5.90); RED CELL DISTRIBUTION WIDTH 15.8 % (11.5-14.5)
[2022-04-09 07:30] LABS: ALANINE AMINOTRANSFERASE 19 U/L (12-78); ALBUMIN 3.3 g/dL (3.4-5.0); ALKALINE PHOSPHATASE 52 U/L (46-116); ANION GAP 5 mmol/L (8-16); ASPARTATE AMINOTRANSFERASE 17 U/L (15-37); BILIRUBIN,TOTAL 0.2 mg/dL (0.1-1.0); CALCIUM, TOTAL 8.6 mg/dL (8.8-10.5); CARBON DIOXIDE 31 mmol/L (22-29); CHLORIDE 105 mmol/L (98-107); CREATININE 0.83 mg/dL (0.60-1.30); GLUCOSE,RANDOM 77 mg/dL (70-110); POTASSIUM 4.3 mmol/L (3.5-5.1); SODIUM SERUM 141 mmol/L (136-145); TOTAL PROTEIN, SERUM 6.8 g/dL (6.4-8.2); UREA NITROGEN, BLOOD 22 mg/dL (7-18)
[2022-04-09 07:32] LABS: GLOMERULAR FILTR. RATE CALC > 60 mL/min (>60)
[2022-04-09] MEDS: MULTIVITAMINS WITH MINERALS, THERAPEUTIC TABLET PO SCH (08:15)
[2022-04-09] MEDS: NALTREXONE HCL 50 MG TABLET PO SCH (08:15)
[2022-04-09] MEDS: OMEGA-3/DHA/EPA/FISH OIL 1,000 MG CAPSULE PO SCH (08:15)
[2022-04-09] MEDS: NICOTINE 14 MG/24 HOUR PATCH TD SCH (08:18)
[2022-04-09] MEDS ORDERED: PALIPERIDONE PALMITATE 117 MG/0.75 ML SYRINGE IM ONE (09:00)
[2022-04-09 09:26] VITALS: BP 116/68
[2022-04-09] MEDS: ACETAMINOPHEN 325 MG TABLET PO PRN (10:51)
[2022-04-09] MEDS: IBUPROFEN 600 MG TABLET PO PRN (15:55)
[2022-04-09] MEDS: LORazepam 2 MG TABLET PO PRN (16:43)
[2022-04-09 20:38] VITALS: BP 118/65
[2022-04-09] MEDS: MELATONIN 5 MG TABLET PO SCH (21:00)
[2022-04-09] MEDS: DIVALPROEX SODIUM 500 MG ER TABLET PO SCH (21:00)
[2022-04-10 08:04] VITALS: BP 104/63
[2022-04-10] MEDS: NALTREXONE HCL 50 MG TABLET PO SCH (08:29)
[2022-04-10] MEDS: MULTIVITAMINS WITH MINERALS, THERAPEUTIC TABLET PO SCH (08:29)
[2022-04-10] MEDS: NICOTINE 14 MG/24 HOUR PATCH TD SCH (08:29)
[2022-04-10] MEDS: OMEGA-3/DHA/EPA/FISH OIL 1,000 MG CAPSULE PO SCH (08:29)
[2022-04-10] MEDS: ACETAMINOPHEN 325 MG TABLET PO PRN (14:23)
[2022-04-10 20:10] VITALS: BP 108/60
[2022-04-10] MEDS: MELATONIN 5 MG TABLET PO SCH (20:27)
[2022-04-10] MEDS: DIVALPROEX SODIUM 500 MG ER TABLET PO SCH (20:27)
[2022-04-11 08:05] VITALS: BP 100/62
[2022-04-11] MEDS: ATOMOXETINE HCL 10 MG CAPSULE PO SCH (08:12)
[2022-04-11] MEDS: NALTREXONE HCL 50 MG TABLET PO SCH (08:12)
[2022-04-11] MEDS: NICOTINE 14 MG/24 HOUR PATCH TD SCH (08:12)
[2022-04-11] MEDS: OMEGA-3/DHA/EPA/FISH OIL 1,000 MG CAPSULE PO SCH (08:12)
[2022-04-11] MEDS: MULTIVITAMINS WITH MINERALS, THERAPEUTIC TABLET PO SCH (08:12)
[2022-04-11] MEDS: IBUPROFEN 600 MG TABLET PO PRN (14:59)
[2022-04-11 20:05] VITALS: BP 119/61
[2022-04-11] MEDS: MELATONIN 5 MG TABLET PO SCH (20:29)
[2022-04-11] MEDS: DIVALPROEX SODIUM 500 MG ER TABLET PO SCH (20:29)
[2022-04-12 08:06] VITALS: BP 103/62
[2022-04-12] MEDS: OMEGA-3/DHA/EPA/FISH OIL 1,000 MG CAPSULE PO SCH (08:25)
[2022-04-12] MEDS: MULTIVITAMINS WITH MINERALS, THERAPEUTIC TABLET PO SCH (08:25)
[2022-04-12] MEDS: NALTREXONE HCL 50 MG TABLET PO SCH (08:25)
[2022-04-12] MEDS: NICOTINE 14 MG/24 HOUR PATCH TD SCH (08:26)
[2022-04-12] MEDS: ATOMOXETINE HCL 10 MG CAPSULE PO SCH (08:26)
[2022-04-12 09:51] LABS: GLUCOMETER DEV NAME(LOC) POC.BV
[2022-04-12] MEDS: IBUPROFEN 600 MG TABLET PO PRN (14:45)
[2022-04-12 18:06] LABS: GLUCOMETER DEV NAME(LOC) POC.BV
[2022-04-12 20:04] VITALS: BP 105/62
[2022-04-12] MEDS: DIVALPROEX SODIUM 500 MG ER TABLET PO SCH (20:11)
[2022-04-12] MEDS: MELATONIN 5 MG TABLET PO SCH (20:12)
[2022-04-13 08:20] VITALS: BP 116/58
[2022-04-13] MEDS: ATOMOXETINE HCL 10 MG CAPSULE PO SCH (08:21)
[2022-04-13] MEDS: NICOTINE 14 MG/24 HOUR PATCH TD SCH (08:22)
[2022-04-13] MEDS: OMEGA-3/DHA/EPA/FISH OIL 1,000 MG CAPSULE PO SCH (08:22)
[2022-04-13] MEDS: MULTIVITAMINS WITH MINERALS, THERAPEUTIC TABLET PO SCH (08:22)
[2022-04-13] MEDS: NALTREXONE HCL 50 MG TABLET PO SCH (08:22)
[2022-04-13] MEDS: IBUPROFEN 600 MG TABLET PO PRN (09:24)
[2022-04-13] MEDS: DIVALPROEX SODIUM 500 MG ER TABLET PO SCH (20:49)
[2022-04-13] MEDS: MELATONIN 5 MG TABLET PO SCH (20:49)
[2022-04-13 21:29] VITALS: BP 104/68
[2022-04-14 08:03] VITALS: BP 103/60
[2022-04-14] MEDS: NALTREXONE HCL 50 MG TABLET PO SCH (08:29)
[2022-04-14] MEDS: ATOMOXETINE HCL 10 MG CAPSULE PO SCH (08:29)
[2022-04-14] MEDS: MULTIVITAMINS WITH MINERALS, THERAPEUTIC TABLET PO SCH (08:29)
[2022-04-14] MEDS: OMEGA-3/DHA/EPA/FISH OIL 1,000 MG CAPSULE PO SCH (08:29)
[2022-04-14] MEDS: NICOTINE 14 MG/24 HOUR PATCH TD SCH (08:32)
[2022-04-14 13:42] VITALS: BP 106/60
[2022-04-14] MEDS: IBUPROFEN 600 MG TABLET PO PRN (13:42)
[2022-04-14 20:03] VITALS: BP 104/60
[2022-04-14] MEDS: MELATONIN 5 MG TABLET PO SCH (20:12)
[2022-04-14] MEDS: DIVALPROEX SODIUM 500 MG ER TABLET PO SCH (20:12)
[2022-04-15 08:11] VITALS: BP 109/66
[2022-04-15] MEDS: OMEGA-3/DHA/EPA/FISH OIL 1,000 MG CAPSULE PO SCH (08:20)
[2022-04-15] MEDS: NALTREXONE HCL 50 MG TABLET PO SCH (08:20)
[2022-04-15] MEDS: MULTIVITAMINS WITH MINERALS, THERAPEUTIC TABLET PO SCH (08:21)
[2022-04-15] MEDS: NICOTINE 14 MG/24 HOUR PATCH TD SCH (08:22)
[2022-04-15] MEDS ORDERED: ATOMOXETINE HCL 18 MG CAPSULE PO SCH (09:00)
[2022-04-15 15:35] VITALS: BP 109/62
[2022-04-15] MEDS: IBUPROFEN 600 MG TABLET PO PRN (15:35)
[2022-04-15 20:03] VITALS: BP 107/64
[2022-04-15] MEDS: MELATONIN 5 MG TABLET PO SCH (20:13)
[2022-04-15] MEDS: DIVALPROEX SODIUM 500 MG ER TABLET PO SCH (20:13)
[2022-04-16 08:48] VITALS: BP 106/67
[2022-04-16] MEDS: NICOTINE 14 MG/24 HOUR PATCH TD SCH (09:14)
[2022-04-16] MEDS: MULTIVITAMINS WITH MINERALS, THERAPEUTIC TABLET PO SCH (09:14)
[2022-04-16] MEDS: OMEGA-3/DHA/EPA/FISH OIL 1,000 MG CAPSULE PO SCH (09:14)
[2022-04-16] MEDS: ATOMOXETINE HCL 25 MG CAPSULE PO SCH (09:18)
[2022-04-16] MEDS: NALTREXONE HCL 50 MG TABLET PO SCH (09:18)
[2022-04-16] MEDS: IBUPROFEN 600 MG TABLET PO PRN (14:15)
[2022-04-16 14:16] VITALS: BP 108/70
[2022-04-16] MEDS: DIVALPROEX SODIUM 500 MG ER TABLET PO SCH (20:13)
[2022-04-16] MEDS: MELATONIN 5 MG TABLET PO SCH (20:13)
[2022-04-16 20:22] VITALS: BP 106/72
[2022-04-17 08:13] VITALS: BP 111/60
[2022-04-17] MEDS: ATOMOXETINE HCL 25 MG CAPSULE PO SCH (08:22)
[2022-04-17] MEDS: OMEGA-3/DHA/EPA/FISH OIL 1,000 MG CAPSULE PO SCH (08:22)
[2022-04-17] MEDS: NALTREXONE HCL 50 MG TABLET PO SCH (08:22)
[2022-04-17] MEDS: MULTIVITAMINS WITH MINERALS, THERAPEUTIC TABLET PO SCH (08:23)
[2022-04-17] MEDS: NICOTINE 14 MG/24 HOUR PATCH TD SCH (08:23)
[2022-04-17] MEDS: IBUPROFEN 600 MG TABLET PO PRN (15:53)
[2022-04-17 20:03] VITALS: BP 106/60
[2022-04-17] MEDS: DIVALPROEX SODIUM 500 MG ER TABLET PO SCH (20:18)
[2022-04-17] MEDS: MELATONIN 5 MG TABLET PO SCH (20:18)
[2022-04-18 08:21] VITALS: BP 110/65
[2022-04-18] MEDS: OMEGA-3/DHA/EPA/FISH OIL 1,000 MG CAPSULE PO SCH (08:36)
[2022-04-18] MEDS: NALTREXONE HCL 50 MG TABLET PO SCH (08:36)
[2022-04-18] MEDS: ATOMOXETINE HCL 40 MG CAPSULE PO SCH (08:37)
[2022-04-18] MEDS: MULTIVITAMINS WITH MINERALS, THERAPEUTIC TABLET PO SCH (08:41)
[2022-04-18] MEDS: NICOTINE 14 MG/24 HOUR PATCH TD SCH (08:46)
[2022-04-18] MEDS: IBUPROFEN 600 MG TABLET PO PRN (10:37)
[2022-04-18] MEDS: MELATONIN 5 MG TABLET PO SCH (20:27)
[2022-04-18] MEDS: DIVALPROEX SODIUM 500 MG ER TABLET PO SCH (20:27)
[2022-04-18 21:06] VITALS: BP 110/65
[2022-04-19 08:21] LABS: GLUCOMETER DEV NAME(LOC) POC.BV
[2022-04-19 08:27] VITALS: BP 122/62
[2022-04-19] MEDS: ATOMOXETINE HCL 40 MG CAPSULE PO SCH (08:48)
[2022-04-19] MEDS: OMEGA-3/DHA/EPA/FISH OIL 1,000 MG CAPSULE PO SCH (08:48)
[2022-04-19] MEDS: NALTREXONE HCL 50 MG TABLET PO SCH (08:48)
[2022-04-19] MEDS: NICOTINE 14 MG/24 HOUR PATCH TD SCH (08:48)
[2022-04-19] MEDS: MULTIVITAMINS WITH MINERALS, THERAPEUTIC TABLET PO SCH (08:48)
[2022-04-19] MEDS: IBUPROFEN 600 MG TABLET PO PRN ×2 (09:47→16:07)
[2022-04-19 16:03] VITALS: BP 109/62
[2022-04-19] MEDS: MELATONIN 5 MG TABLET PO SCH (20:32)
[2022-04-19] MEDS: DIVALPROEX SODIUM 500 MG ER TABLET PO SCH (20:32)
[2022-04-19 21:56] VITALS: BP 104/69
[2022-04-20] MEDS: NALTREXONE HCL 50 MG TABLET PO SCH (08:09)
[2022-04-20] MEDS: OMEGA-3/DHA/EPA/FISH OIL 1,000 MG CAPSULE PO SCH (08:09)
[2022-04-20] MEDS: MULTIVITAMINS WITH MINERALS, THERAPEUTIC TABLET PO SCH (08:09)
[2022-04-20] MEDS: ATOMOXETINE HCL 40 MG CAPSULE PO SCH (08:09)
[2022-04-20] MEDS: NICOTINE 14 MG/24 HOUR PATCH TD SCH (08:12)
[2022-04-20 08:47] VITALS: BP 105/60
[2022-04-20] MEDS: IBUPROFEN 600 MG TABLET PO PRN (14:21)
[2022-04-20] MEDS: LORazepam 2 MG TABLET PO PRN (16:35)
[2022-04-20 20:00] VITALS: BP 107/62
[2022-04-20] MEDS: MELATONIN 5 MG TABLET PO SCH (20:39)
[2022-04-20] MEDS: DIVALPROEX SODIUM 500 MG ER TABLET PO SCH (20:39)
[2022-04-21] MEDS ORDERED: ATOMOXETINE HCL 60 MG CAPSULE PO SCH (09:00)
[2022-04-21 09:12] VITALS: BP 101/64
[2022-04-21] MEDS: MULTIVITAMINS WITH MINERALS, THERAPEUTIC TABLET PO SCH (09:36)
[2022-04-21] MEDS: OMEGA-3/DHA/EPA/FISH OIL 1,000 MG CAPSULE PO SCH (09:36)
[2022-04-21] MEDS: NICOTINE 14 MG/24 HOUR PATCH TD SCH (09:37)
[2022-04-21] MEDS: NALTREXONE HCL 50 MG TABLET PO SCH (09:37)
[2022-04-21] MEDS: DIVALPROEX SODIUM 500 MG ER TABLET PO SCH (20:44)
[2022-04-21] MEDS: MELATONIN 5 MG TABLET PO SCH (20:44)
[2022-04-21 22:38] VITALS: BP 108/60
[2022-04-22] MEDS: NICOTINE 14 MG/24 HOUR PATCH TD SCH (08:31)
[2022-04-22] MEDS: NALTREXONE HCL 50 MG TABLET PO SCH (08:31)
[2022-04-22] MEDS: MULTIVITAMINS WITH MINERALS, THERAPEUTIC TABLET PO SCH (08:31)
[2022-04-22] MEDS: OMEGA-3/DHA/EPA/FISH OIL 1,000 MG CAPSULE PO SCH (08:32)
[2022-04-22 08:40] VITALS: BP 108/67
[2022-04-22] MEDS ORDERED: ATOMOXETINE HCL 40 MG CAPSULE PO SCH (09:00)
[2022-04-22 14:02] VITALS: BP 116/71
[2022-04-22] MEDS: IBUPROFEN 600 MG TABLET PO PRN (14:08)
[2022-04-22] MEDS: DIVALPROEX SODIUM 500 MG ER TABLET PO SCH (20:37)
[2022-04-22] MEDS: MELATONIN 5 MG TABLET PO SCH (20:37)
[2022-04-22 23:31] VITALS: BP 123/69
[2022-04-23] MEDS: MULTIVITAMINS WITH MINERALS, THERAPEUTIC TABLET PO SCH (08:19)
[2022-04-23] MEDS: OMEGA-3/DHA/EPA/FISH OIL 1,000 MG CAPSULE PO SCH (08:20)
[2022-04-23] MEDS: NALTREXONE HCL 50 MG TABLET PO SCH (08:20)
[2022-04-23] MEDS: ATOMOXETINE HCL 60 MG CAPSULE PO SCH (08:20)
[2022-04-23] MEDS: ATOMOXETINE HCL 40 MG CAPSULE PO SCH (08:20)
[2022-04-23] MEDS: NICOTINE 14 MG/24 HOUR PATCH TD SCH (08:21)
[2022-04-23 08:59] VITALS: BP 116/90
[2022-04-23] MEDS: MELATONIN 5 MG TABLET PO SCH (20:07)
[2022-04-23] MEDS: DIVALPROEX SODIUM 500 MG ER TABLET PO SCH (20:07)
[2022-04-23 20:31] VITALS: BP 109/59
[2022-04-24 08:39] VITALS: BP 109/68
[2022-04-24] MEDS: MULTIVITAMINS WITH MINERALS, THERAPEUTIC TABLET PO SCH (08:59)
[2022-04-24] MEDS: NALTREXONE HCL 50 MG TABLET PO SCH (08:59)
[2022-04-24] MEDS: ATOMOXETINE HCL 40 MG CAPSULE PO SCH (08:59)
[2022-04-24] MEDS: ATOMOXETINE HCL 60 MG CAPSULE PO SCH (08:59)
[2022-04-24] MEDS: NICOTINE 14 MG/24 HOUR PATCH TD SCH (09:00)
[2022-04-24] MEDS: OMEGA-3/DHA/EPA/FISH OIL 1,000 MG CAPSULE PO SCH (09:01)
[2022-04-24 12:17] VITALS: BP 114/79
[2022-04-24] MEDS: IBUPROFEN 600 MG TABLET PO PRN (12:20)
[2022-04-24] MEDS: LORazepam 2 MG TABLET PO PRN (17:28)
[2022-04-24 20:00] VITALS: BP 120/77
[2022-04-24] MEDS: MELATONIN 5 MG TABLET PO SCH (20:18)
[2022-04-24] MEDS: DIVALPROEX SODIUM 500 MG ER TABLET PO SCH (20:18)
[2022-04-25 08:24] VITALS: BP 124/60
[2022-04-25] MEDS: ATOMOXETINE HCL 60 MG CAPSULE PO SCH (08:58)
[2022-04-25] MEDS: NALTREXONE HCL 50 MG TABLET PO SCH (08:58)
[2022-04-25] MEDS: NICOTINE 14 MG/24 HOUR PATCH TD SCH (08:58)
[2022-04-25] MEDS: MULTIVITAMINS WITH MINERALS, THERAPEUTIC TABLET PO SCH (08:58)
[2022-04-25] MEDS: OMEGA-3/DHA/EPA/FISH OIL 1,000 MG CAPSULE PO SCH (08:58)
[2022-04-25] MEDS: ATOMOXETINE HCL 40 MG CAPSULE PO SCH (08:58)
[2022-04-25] MEDS: ACETAMINOPHEN 325 MG TABLET PO PRN (11:13)
[2022-04-25] MEDS: DIVALPROEX SODIUM 500 MG ER TABLET PO SCH (21:06)
[2022-04-25] MEDS: MELATONIN 5 MG TABLET PO SCH (21:06)
[2022-04-25 22:51] VITALS: BP 120/71
[2022-04-26] MEDS: MULTIVITAMINS WITH MINERALS, THERAPEUTIC TABLET PO SCH (08:13)
[2022-04-26] MEDS: NALTREXONE HCL 50 MG TABLET PO SCH (08:13)
[2022-04-26] MEDS: OMEGA-3/DHA/EPA/FISH OIL 1,000 MG CAPSULE PO SCH (08:13)
[2022-04-26] MEDS: ATOMOXETINE HCL 60 MG CAPSULE PO SCH (08:14)
[2022-04-26] MEDS: ATOMOXETINE HCL 40 MG CAPSULE PO SCH (08:14)
[2022-04-26] MEDS: NICOTINE 14 MG/24 HOUR PATCH TD SCH (08:14)
[2022-04-26 08:34] VITALS: BP 113/71
[2022-04-26 10:56] LABS: GLUCOMETER DEV NAME(LOC) POC.BV
[2022-04-26] MEDS: DIVALPROEX SODIUM 500 MG ER TABLET PO SCH (20:24)
[2022-04-26] MEDS: MELATONIN 5 MG TABLET PO SCH (20:25)
[2022-04-26 23:06] VITALS: BP 110/67
[2022-04-27] MEDS: OMEGA-3/DHA/EPA/FISH OIL 1,000 MG CAPSULE PO SCH (08:40)
[2022-04-27] MEDS: ATOMOXETINE HCL 60 MG CAPSULE PO SCH (08:41)
[2022-04-27] MEDS: NALTREXONE HCL 50 MG TABLET PO SCH (08:41)
[2022-04-27] MEDS: MULTIVITAMINS WITH MINERALS, THERAPEUTIC TABLET PO SCH (08:41)
[2022-04-27] MEDS: NICOTINE 14 MG/24 HOUR PATCH TD SCH (08:41)
[2022-04-27] MEDS: ATOMOXETINE HCL 40 MG CAPSULE PO SCH (08:41)
[2022-04-27 08:53] VITALS: BP 115/66
[2022-04-27 20:16] VITALS: BP 107/70
[2022-04-27] MEDS: DIVALPROEX SODIUM 500 MG ER TABLET PO SCH (21:01)
[2022-04-27] MEDS: MELATONIN 5 MG TABLET PO SCH (21:01)
[2022-04-28 08:37] VITALS: BP 116/61
[2022-04-28] MEDS: NICOTINE 14 MG/24 HOUR PATCH TD SCH (09:00)
[2022-04-28] MEDS: NALTREXONE HCL 50 MG TABLET PO SCH (09:25)
[2022-04-28] MEDS: ATOMOXETINE HCL 40 MG CAPSULE PO SCH (09:25)
[2022-04-28] MEDS: MULTIVITAMINS WITH MINERALS, THERAPEUTIC TABLET PO SCH (09:26)
[2022-04-28] MEDS: OMEGA-3/DHA/EPA/FISH OIL 1,000 MG CAPSULE PO SCH (09:26)
[2022-04-28] MEDS: ATOMOXETINE HCL 60 MG CAPSULE PO SCH (09:26)
[2022-04-28] MEDS: DIVALPROEX SODIUM 500 MG ER TABLET PO SCH (20:17)
[2022-04-28] MEDS: MELATONIN 5 MG TABLET PO SCH (20:17)
[2022-04-28 20:26] VITALS: BP 112/64
[2022-04-29] MEDS: OMEGA-3/DHA/EPA/FISH OIL 1,000 MG CAPSULE PO SCH (08:18)
[2022-04-29] MEDS: ATOMOXETINE HCL 40 MG CAPSULE PO SCH (08:19)
[2022-04-29] MEDS: MULTIVITAMINS WITH MINERALS, THERAPEUTIC TABLET PO SCH (08:19)
[2022-04-29] MEDS: NALTREXONE HCL 50 MG TABLET PO SCH (08:19)
[2022-04-29] MEDS: ATOMOXETINE HCL 60 MG CAPSULE PO SCH (08:19)
[2022-04-29] MEDS: NICOTINE 14 MG/24 HOUR PATCH TD SCH (08:20)
[2022-04-29 10:19] VITALS: BP 110/60
[2022-04-29] MEDS: DIVALPROEX SODIUM 500 MG ER TABLET PO SCH (20:09)
[2022-04-29] MEDS: MELATONIN 5 MG TABLET PO SCH (20:09)
[2022-04-29 22:14] VITALS: BP 122/75
[2022-04-30] MEDS: OMEGA-3/DHA/EPA/FISH OIL 1,000 MG CAPSULE PO SCH (08:22)
[2022-04-30] MEDS: ATOMOXETINE HCL 60 MG CAPSULE PO SCH (08:22)
[2022-04-30] MEDS: MULTIVITAMINS WITH MINERALS, THERAPEUTIC TABLET PO SCH (08:23)
[2022-04-30] MEDS: NICOTINE 14 MG/24 HOUR PATCH TD SCH (08:23)
[2022-04-30] MEDS: NALTREXONE HCL 50 MG TABLET PO SCH (08:23)
[2022-04-30] MEDS: ATOMOXETINE HCL 40 MG CAPSULE PO SCH (08:24)
[2022-04-30] MEDS: IBUPROFEN 600 MG TABLET PO PRN ×2 (09:26→16:57)
[2022-04-30 10:46] VITALS: BP 120/80
[2022-04-30 20:26] VITALS: BP 112/66
[2022-04-30] MEDS: MELATONIN 5 MG TABLET PO SCH (20:49)
[2022-04-30] MEDS: DIVALPROEX SODIUM 500 MG ER TABLET PO SCH (20:49)
[2022-05-01 08:18] VITALS: BP 109/60
[2022-05-01] MEDS: ATOMOXETINE HCL 60 MG CAPSULE PO SCH (08:24)
[2022-05-01] MEDS: ATOMOXETINE HCL 40 MG CAPSULE PO SCH (08:24)
[2022-05-01] MEDS: NALTREXONE HCL 50 MG TABLET PO SCH (08:24)
[2022-05-01] MEDS: MULTIVITAMINS WITH MINERALS, THERAPEUTIC TABLET PO SCH (08:24)
[2022-05-01] MEDS: OMEGA-3/DHA/EPA/FISH OIL 1,000 MG CAPSULE PO SCH (08:24)
[2022-05-01] MEDS: NICOTINE 14 MG/24 HOUR PATCH TD SCH (08:24)
[2022-05-01] MEDS: IBUPROFEN 600 MG TABLET PO PRN (10:46)
[2022-05-01] MEDS: ACETAMINOPHEN 325 MG TABLET PO PRN (16:44)
[2022-05-01] MEDS: DIVALPROEX SODIUM 500 MG ER TABLET PO SCH (20:12)
[2022-05-01] MEDS: MELATONIN 5 MG TABLET PO SCH (20:12)
[2022-05-02 08:41] VITALS: BP 108/63
[2022-05-02] MEDS: ATOMOXETINE HCL 40 MG CAPSULE PO SCH (09:10)
[2022-05-02] MEDS: NALTREXONE HCL 50 MG TABLET PO SCH (09:10)
[2022-05-02] MEDS: NICOTINE 14 MG/24 HOUR PATCH TD SCH (09:10)
[2022-05-02] MEDS: ATOMOXETINE HCL 60 MG CAPSULE PO SCH (09:10)
[2022-05-02] MEDS: MULTIVITAMINS WITH MINERALS, THERAPEUTIC TABLET PO SCH (09:11)
[2022-05-02] MEDS: OMEGA-3/DHA/EPA/FISH OIL 1,000 MG CAPSULE PO SCH (09:11)
[2022-05-02] MEDS: LORazepam 2 MG TABLET PO PRN (16:09)
[2022-05-02] MEDS: ACETAMINOPHEN 325 MG TABLET PO PRN (16:10)
[2022-05-02] MEDS: MELATONIN 5 MG TABLET PO SCH (20:09)
[2022-05-02] MEDS: DIVALPROEX SODIUM 500 MG ER TABLET PO SCH (20:09)
[2022-05-02 20:22] VITALS: BP 112/60
[2022-05-03 08:13] VITALS: BP 109/64
[2022-05-03] MEDS: NALTREXONE HCL 50 MG TABLET PO SCH (08:52)
[2022-05-03] MEDS: MULTIVITAMINS WITH MINERALS, THERAPEUTIC TABLET PO SCH (08:52)
[2022-05-03] MEDS: OMEGA-3/DHA/EPA/FISH OIL 1,000 MG CAPSULE PO SCH (08:52)
[2022-05-03] MEDS: NICOTINE 14 MG/24 HOUR PATCH TD SCH (08:52)
[2022-05-03] MEDS: ATOMOXETINE HCL 40 MG CAPSULE PO SCH (08:53)
[2022-05-03] MEDS: ATOMOXETINE HCL 60 MG CAPSULE PO SCH (08:53)
[2022-05-03] MEDS: IBUPROFEN 600 MG TABLET PO PRN (14:56)
[2022-05-03 20:05] LABS: GLUCOMETER DEV NAME(LOC) POC.BV
[2022-05-03] MEDS: DIVALPROEX SODIUM 500 MG ER TABLET PO SCH (20:14)
[2022-05-03] MEDS: MELATONIN 5 MG TABLET PO SCH (20:14)
[2022-05-03 20:36] VITALS: BP 110/64
[2022-05-04 08:50] VITALS: BP 108/58
[2022-05-04] MEDS: ATOMOXETINE HCL 40 MG CAPSULE PO SCH (08:55)
[2022-05-04] MEDS: MULTIVITAMINS WITH MINERALS, THERAPEUTIC TABLET PO SCH (08:55)
[2022-05-04] MEDS: OMEGA-3/DHA/EPA/FISH OIL 1,000 MG CAPSULE PO SCH (08:55)
[2022-05-04] MEDS: ATOMOXETINE HCL 60 MG CAPSULE PO SCH (08:55)
[2022-05-04] MEDS: NICOTINE 14 MG/24 HOUR PATCH TD SCH (08:55)
[2022-05-04] MEDS: NALTREXONE HCL 50 MG TABLET PO SCH (08:55)
[2022-05-04] MEDS: LORazepam 2 MG TABLET PO PRN (15:41)
[2022-05-04] MEDS: IBUPROFEN 600 MG TABLET PO PRN (15:41)
[2022-05-04 15:42] VITALS: BP 122/80
[2022-05-04 20:09] VITALS: BP 118/70
[2022-05-04] MEDS: DIVALPROEX SODIUM 500 MG ER TABLET PO SCH (20:32)
[2022-05-04] MEDS: MELATONIN 5 MG TABLET PO SCH (20:32)
[2022-05-05] MEDS: ATOMOXETINE HCL 60 MG CAPSULE PO SCH (08:12)
[2022-05-05] MEDS: NICOTINE 14 MG/24 HOUR PATCH TD SCH (08:12)
[2022-05-05] MEDS: NALTREXONE HCL 50 MG TABLET PO SCH (08:13)
[2022-05-05] MEDS: OMEGA-3/DHA/EPA/FISH OIL 1,000 MG CAPSULE PO SCH (08:13)
[2022-05-05] MEDS: MULTIVITAMINS WITH MINERALS, THERAPEUTIC TABLET PO SCH (08:13)
[2022-05-05] MEDS: ATOMOXETINE HCL 40 MG CAPSULE PO SCH (08:13)
[2022-05-05 09:41] VITALS: BP 108/68
[2022-05-05] MEDS: ACETAMINOPHEN 325 MG TABLET PO PRN (12:37)
[2022-05-05] MEDS: LORazepam 2 MG TABLET PO PRN ×2 (12:37→20:02)
[2022-05-05] MEDS: MELATONIN 5 MG TABLET PO SCH (20:02)
[2022-05-05] MEDS: DIVALPROEX SODIUM 500 MG ER TABLET PO SCH (20:02)
[2022-05-05 20:07] VITALS: BP 113/74
[2022-05-06] MEDS: MULTIVITAMINS WITH MINERALS, THERAPEUTIC TABLET PO SCH (08:09)
[2022-05-06] MEDS: NICOTINE 14 MG/24 HOUR PATCH TD SCH (08:09)
[2022-05-06] MEDS: OMEGA-3/DHA/EPA/FISH OIL 1,000 MG CAPSULE PO SCH (08:09)
[2022-05-06] MEDS: NALTREXONE HCL 50 MG TABLET PO SCH (08:09)
[2022-05-06] MEDS: LORazepam 2 MG TABLET PO PRN ×2 (08:09→16:17)
[2022-05-06] MEDS: ATOMOXETINE HCL 60 MG CAPSULE PO SCH (08:10)
[2022-05-06] MEDS: ATOMOXETINE HCL 40 MG CAPSULE PO SCH (08:10)
[2022-05-06 08:28] VITALS: BP 112/66
[2022-05-06 16:11] VITALS: BP 124/74
[2022-05-06] MEDS: IBUPROFEN 600 MG TABLET PO PRN (16:17)
[2022-05-06 20:00] VITALS: BP 128/81
[2022-05-06] MEDS: MELATONIN 5 MG TABLET PO SCH (20:02)
[2022-05-06] MEDS: DIVALPROEX SODIUM 500 MG ER TABLET PO SCH (20:02)
[2022-05-07] MEDS: MULTIVITAMINS WITH MINERALS, THERAPEUTIC TABLET PO SCH (08:17)
[2022-05-07] MEDS: NALTREXONE HCL 50 MG TABLET PO SCH (08:17)
[2022-05-07] MEDS: OMEGA-3/DHA/EPA/FISH OIL 1,000 MG CAPSULE PO SCH (08:17)
[2022-05-07] MEDS: ATOMOXETINE HCL 60 MG CAPSULE PO SCH (08:17)
[2022-05-07] MEDS: ATOMOXETINE HCL 40 MG CAPSULE PO SCH (08:17)
[2022-05-07] MEDS: NICOTINE 14 MG/24 HOUR PATCH TD SCH (08:23)
[2022-05-07] MEDS ORDERED: PALIPERIDONE PALMITATE 117 MG/0.75 ML SYRINGE IM SCH (09:00)
[2022-05-07 10:04] VITALS: BP 122/66
[2022-05-07] MEDS: LORazepam 2 MG TABLET PO PRN (14:36)
[2022-05-07] MEDS: IBUPROFEN 600 MG TABLET PO PRN (17:35)
[2022-05-07] MEDS: MELATONIN 5 MG TABLET PO SCH (20:20)
[2022-05-07] MEDS: DIVALPROEX SODIUM 500 MG ER TABLET PO SCH (20:20)
[2022-05-07 21:32] VITALS: BP 113/74
[2022-05-08] MEDS: NALTREXONE HCL 50 MG TABLET PO SCH (08:09)
[2022-05-08] MEDS: ATOMOXETINE HCL 60 MG CAPSULE PO SCH (08:09)
[2022-05-08] MEDS: MULTIVITAMINS WITH MINERALS, THERAPEUTIC TABLET PO SCH (08:09)
[2022-05-08] MEDS: OMEGA-3/DHA/EPA/FISH OIL 1,000 MG CAPSULE PO SCH (08:09)
[2022-05-08] MEDS: ATOMOXETINE HCL 40 MG CAPSULE PO SCH (08:09)
[2022-05-08 08:15] VITALS: BP 121/66
[2022-05-08] MEDS: NICOTINE 14 MG/24 HOUR PATCH TD SCH (09:00)
[2022-05-08 14:26] LABS: GLUCOMETER DEV NAME(LOC) POC.BV
[2022-05-08] MEDS: IBUPROFEN 600 MG TABLET PO PRN (16:36)
[2022-05-08 20:02] VITALS: BP 119/74
[2022-05-08] MEDS: MELATONIN 5 MG TABLET PO SCH (20:18)
[2022-05-08] MEDS: DIVALPROEX SODIUM 500 MG ER TABLET PO SCH (20:18)
[2022-05-09] MEDS: OMEGA-3/DHA/EPA/FISH OIL 1,000 MG CAPSULE PO SCH (08:05)
[2022-05-09] MEDS: MULTIVITAMINS WITH MINERALS, THERAPEUTIC TABLET PO SCH (08:05)
[2022-05-09] MEDS: NALTREXONE HCL 50 MG TABLET PO SCH (08:05)
[2022-05-09] MEDS: ATOMOXETINE HCL 60 MG CAPSULE PO SCH (08:06)
[2022-05-09] MEDS: ATOMOXETINE HCL 40 MG CAPSULE PO SCH (08:06)
[2022-05-09] MEDS: NICOTINE 14 MG/24 HOUR PATCH TD SCH (08:07)
[2022-05-09 08:24] VITALS: BP 125/85
[2022-05-09] MEDS: IBUPROFEN 600 MG TABLET PO PRN (11:17)
[2022-05-09 20:03] VITALS: BP 123/69
[2022-05-09] MEDS: DIVALPROEX SODIUM 500 MG ER TABLET PO SCH (20:24)
[2022-05-09] MEDS: MELATONIN 5 MG TABLET PO SCH (20:24)
[2022-05-10 08:29] VITALS: BP 102/66
[2022-05-10] MEDS: NALTREXONE HCL 50 MG TABLET PO SCH (08:33)
[2022-05-10] MEDS: OMEGA-3/DHA/EPA/FISH OIL 1,000 MG CAPSULE PO SCH (08:33)
[2022-05-10] MEDS: ATOMOXETINE HCL 40 MG CAPSULE PO SCH (08:33)
[2022-05-10] MEDS: NICOTINE 14 MG/24 HOUR PATCH TD SCH (08:33)
[2022-05-10] MEDS: MULTIVITAMINS WITH MINERALS, THERAPEUTIC TABLET PO SCH (08:33)
[2022-05-10] MEDS: ATOMOXETINE HCL 60 MG CAPSULE PO SCH (08:33)
[2022-05-10 11:28] VITALS: BP 114/72
[2022-05-10] MEDS: IBUPROFEN 600 MG TABLET PO PRN (11:31)
[2022-05-10 20:21] VITALS: BP 109/66
[2022-05-10] MEDS: MELATONIN 5 MG TABLET PO SCH (20:32)
[2022-05-10] MEDS: DIVALPROEX SODIUM 500 MG ER TABLET PO SCH (20:32)
[2022-05-11 08:15] VITALS: BP 111/68
[2022-05-11] MEDS: NALTREXONE HCL 50 MG TABLET PO SCH (08:51)
[2022-05-11] MEDS: OMEGA-3/DHA/EPA/FISH OIL 1,000 MG CAPSULE PO SCH (08:51)
[2022-05-11] MEDS: NICOTINE 14 MG/24 HOUR PATCH TD SCH (08:51)
[2022-05-11] MEDS: MULTIVITAMINS WITH MINERALS, THERAPEUTIC TABLET PO SCH (08:51)
[2022-05-11] MEDS: ATOMOXETINE HCL 40 MG CAPSULE PO SCH (08:52)
[2022-05-11] MEDS: ATOMOXETINE HCL 60 MG CAPSULE PO SCH (08:52)
[2022-05-11] MEDS ORDERED: ATOM60CA7 PO (09:21)
[2022-05-11] MEDS ORDERED: OMEG-135 PO (09:21)
[2022-05-11] MEDS ORDERED: MELA5TAB40 PO (09:21)
[2022-05-11] MEDS ORDERED: NALT50TA PO (09:21)
[2022-05-11] MEDS ORDERED: PALI117D IM (09:24)
[2022-05-11] MEDS ORDERED: DIVA500T69 PO (09:24)
[2022-05-11] MEDS: IBUPROFEN 600 MG TABLET PO PRN (12:36)
== END 2022-05-11 14:02 | DRG 885 ==
LOC: B2X 16:43
PROVIDERS: ADMIT Psychiatry & Neurology Psychiatry; ATTEND Psychiatry & Neurology Psychiatry
DX: F25.0 Schizoaffective disorder, bipolar type (principal); F70 Mild intellectual disabilities; D64.9 Anemia, unspecified; F15.90 Other stimulant use, unspecified, uncomplicated; F17.200 Nicotine dependence, unspecified, uncomplicated; F25.1 Schizoaffective disorder, depressive type; F41.9 Anxiety disorder, unspecified; Z20.822 Contact with and (suspected) exposure to COVID-19; F90.9 Attention-deficit hyperactivity disorder, unspecified type; J44.9 Chronic obstructive pulmonary disease, unspecified; R51.9 Headache, unspecified; K29.70 Gastritis, unspecified, without bleeding; F14.10 Cocaine abuse, uncomplicated; F12.10 Cannabis abuse, uncomplicated; K59.00 Constipation, unspecified; Z55.9 Problems related to education and literacy, unspecified; Z59.00 Homelessness unspecified; Z63.9 Problem related to primary support group, unspecified; Z65.3 Problems related to other legal circumstances; Z74.01 Bed confinement status; Z91.199 Patient's noncompliance with other medical treatment and regimen due to unspecified reason; Z23 Encounter for immunization; Z79.899 Other long term (current) drug therapy
CPT/HCPCS: 80053; 80061; 80164; 80307; 81003; 82962; 83036; 84439; 84443; 85025; 86592; 87081; 90686; Q9967